=== PATIENT | female | born 1990 | race Caucasian/White ===

== ENCOUNTER 2019-05-10 17:26 | Emergency (ER) | payer OTHER ==
[2019-05-10 19:36] LABS: Urine Appearance Clear; Urine Bilirubin Negative (Negative); Urine Blood 1+ (Negative); Urine Color Yellow; Urine Glucose Negative (Negative); Urine Ketones Trace (Negative); Urine Nitrite Negative (Negative); Urine Protein Negative (Negative); Urine Specific Gravity 1.014 (1.010-1.030); Urine Urobilinogen Negative (Negative)
[2019-05-10 19:43] LABS: Urine Bacteria Absent (Absent); Urine Red Blood Cell Trace(0-2/hpf) (Absent); Urine Squamous Epithelial Cell Present (Absent); Urine White Blood Cell 2+(11-20/hpf) (Absent)
[2019-05-10 20:42] LABS: ABS Eosinophils 0.5 10^3/ul (0-0.6); ABS Lymphocytes 2.1 10^3/ul (1.0-4.8); ABS Monocytes 0.5 10^3/ul (0-0.8); ABS Neutrophils 5.7 10^3/ul (1.5-7.7); Eosinophil % 5.3 %; Hematocrit 38 % (35-47); Hemoglobin 11.9 g/dL (12.0-16.0); Mean Corpuscular HGB Conc 31 g/dL (31-36); Mean Corpuscular Hemoglobin 21 pg (27-31); Mean Corpuscular Volume 66 fL (80-97); Mean Platelet Volume 9.5 fL (7.4-10.4); Platelet Count 233 10^3/uL (150-450); Red Cell Distribution Width 15 % (10-15); White Blood Count 8.8 10^3/uL (3.5-10.8)
[2019-05-10 20:58] LABS: ALT 26 U/L (7-52); AST 20 U/L (13-39); Albumin 4.7 g/dL (3.2-5.2); Albumin/Globulin Ratio 1.7 (1-3); Alkaline Phosphatase 68 U/L (34-104); Anion Gap 8 mmol/L (2-11); BUN/Creatinine Ratio 16.9 (8-20); Blood Urea Nitrogen 15 mg/dL (6-24); C Reactive Protein < 1.00 mg/L (<8.01); CO2 Carbon Dioxide 26 mmol/L (22-32); Calcium 9.5 mg/dL (8.6-10.3); Chloride 104 mmol/L (101-111); EGFR African American 91.4 (>60); EGFR Non-African American 75.5 (>60); Globulin 2.8 g/dL (2-4); Glucose 115 mg/dL (70-100); Potassium 3.6 mmol/L (3.5-5.0); Sodium 138 mmol/L (135-145); Total Protein 7.5 g/dL (6.4-8.9)
[2019-05-10 21:04] LABS: HCG Pregnancy < 0.60 mIU/mL
--- NOTE | 2019-05-10 21:33 | ED ---
Progress - Progress Note Progress Note: Pt was called to be seen but she was not in the waiting room at 21:27. Course/Dx - Diagnoses Provider Diagnoses: RLQ abdominal pain Discharge ED - Sign-Out/Discharge Documenting (check all that apply): Patient Departure - Discharge Plan Condition: Stable Referrals: Howie Gee DO [Primary Care Provider] - - Attestation Statements Document Initiated by Scribe: Yes Documenting Scribe: Andreea Da Silva Provider For Whom Scribe is Documenting (Include Credential): Vinh Woo MD Scribe Attestation: IAndreea, scribed for Vinh Woo MD on 05/10/19 at 2206. Status of Scribe Document: Ready
--- NOTE | 2019-05-10 21:46 | ED ---
Abdominal Pain/Female - HPI Summary HPI Summary: This pt is a 29 y/o female presenting to [facility] c/o right sided abd pain worsening over the past 3 days. Pt reports she initially began to notice her pain in January 2019 along with some "gastrointestinal issues." She notes a couple of night ago her abd pain was so severe she almost came to the ED. Associated symptoms of right sided abd distension, intermittent nausea, and decreased appetite. Pt reports she woke up sweating 2 days. Denies fever or chills. Currently she rates her pain 7/10 in severity. PMHx: ovarian cyst. Denies FHx of Crohn's or UC. Her PCP is Dr. Gee. 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 Her medications include Singulair, Fluticasone, vitamins. - History of Current Complaint Chief Complaint: EDAbdPain Stated Complaint: ABDOMINAL PAIN PER PT Hx Obtained From: Patient Hx Last Menstrual Period: Mirena Onset/Duration: Lasting Days, Still Present Timing: Days Severity Currently: Moderate Pain Intensity: 7 Pain Scale Used: 0-10 Numeric Location: Other - right sided abd pain Radiates: No Aggravating Factor(s): Nothing Alleviating Factor(s): Nothing Associated Signs and Symptoms: Positive: Diaphoresis, Nausea. Negative: Fever, Cough, Chest Pain Allergies/Adverse Reactions: Allergies Allergy/AdvReac Type Severity Reaction Status Date / Time amoxicillin Allergy Unknown Verified 05/10/19 17:35 Reaction Details Penicillins Allergy Unknown Verified 05/10/19 17:35 Reaction Details prednisone Allergy Difficulty Verified 05/10/19 17:35 Breathing/Wheezing PMH/Surg Hx/FS Hx/Imm Hx Endocrine/Hematology History: Reports: Hx Anemia - IN THE PAST Denies: Hx Diabetes, Hx Thyroid Disease Cardiovascular History: Denies: Hx Hypertension, Hx Pacemaker/ICD Respiratory History: Reports: Hx Asthma - WILL BRING INHALER Denies: Hx Chronic Obstructive Pulmonary Disease (COPD), Other Respiratory Problems/Disorders GI History: Reports: Other GI Disorders - HX EATING DISORDERS NOT OTHERWISE SPECIFIED Denies: Hx Ulcer History: Denies: Hx Renal Disease Musculoskeletal History: Reports: Hx Tendonitis - ELBOWS AND ACHILLES Denies: Hx Rheumatoid Arthritis, Hx Osteoporosis Sensory History: Denies: Hx Hearing Aid - GLASSES AND CONTACTS Neurological History: Reports: Hx Migraine, Hx Seizures - MIGRAINE SEIZURE COMPLEX, TIRED, MUSCLE SPASMS, Other Neuro Impairments/Disorders - PTSD Psychiatric History: Reports: Hx Anxiety, Hx Eating Disorder, Hx Depression Denies: Hx Panic Disorder - Surgical History Surgical History: Yes Surgery Procedure, Year, and Place: TONSILLECTOMY. Tendons repaired in left arm Hx Anesthesia Reactions: No Infectious Disease History: No Infectious Disease History: Denies: Hx Clostridium Difficile, Hx Hepatitis, Hx Human Immunodeficiency Virus (HIV), Hx of Known/Suspected MRSA, Hx Shingles, Hx Tuberculosis, Hx Known/ Suspected VRE, Hx Known/Suspected VRSA, History Other Infectious Disease, Traveled Outside the [place] in Last 30 Days - Family History Known Family History: Positive: Blood Disorder - thalessemia carrier Family History: Negative FHx of crohn's or UC. - Social History Alcohol Use: None Substance Use Type: Reports: None Hx Tobacco Use: No Smoking Status (MU): Never Smoked Tobacco Have You Smoked in the Last Year: No Review of Systems Constitutional: Other - POSITIVE: decreased appetite Positive: Skin Diaphoresis. Negative: Fever, Chills Negative: Erythema Negative: Sore Throat Negative: Chest Pain Negative: Shortness Of Breath, Cough Positive: Abdominal Pain, Nausea. Negative: Vomiting Negative: dysuria, hematuria Negative: Myalgia, Edema Negative: Rash Neurological: Other - NEGATIVE: dizziness All Other Systems Reviewed And Are Negative: Yes Physical Exam - Summary Physical Exam Summary: Constitutional: Well-developed, Well-nourished, Alert. (-) Distressed Skin: Warm, Dry HENT: Normocephalic; Atraumatic Eyes: Conjunctiva normal Neck: Musculoskeletal ROM normal neck. (-) JVD, (-) Stridor, (-) Tracheal deviation Cardio: Rhythm regular, rate normal, Heart sounds normal; Intact distal pulses; The pedal pulses are 2+ and symmetric. Radial pulses are 2+ and symmetric. (-) Murmur Pulmonary/Chest wall: Effort normal. (-) Respiratory distress, (-) Wheezes, (-) Rales Abd: Soft, right lower quadrant tenderness, (-) Distension, (-) Guarding, (-) Rebound Musculoskeletal: (-) Edema Lymph: (-) Cervical adenopathy Neuro: Alert, Oriented x3 Psych: Mood and affect Normal Triage Information Reviewed: Yes Vital Signs On Initial Exam: Initial Vitals Temp Pulse Resp BP Pulse Ox 98.8 F 87 19 150/77 98 05/10/19 17:32 05/10/19 17:32 05/10/19 17:32 05/10/19 17:32 05/10/19 17:32 Vital Signs Reviewed: Yes Procedures - Sedation Patient Received Moderate/Deep Sedation with Procedure: No Diagnostics - Vital Signs Vital Signs Temp Pulse Resp BP Pulse Ox 05/10/19 19:43 98.9 F 61 18 106/56 100 05/10/19 17:32 98.8 F 87 19 150/77 98 - Laboratory Lab Results: Lab Results 05/10/19 05/10/19 05/10/19 Range/Units 19:10 20:33 20:33 WBC 8.8 (3.5-10.8) 10^3/uL RBC 5.80 H (3.70-4.87) 10^6 /uL Hgb 11.9 L (12.0-16.0) g/dL Hct 38 (35-47) % MCV 66 L (80-97) fL MCH 21 L (27-31) pg MCHC 31 (31-36) g/dL RDW 15 (10-15) % Plt Count 233 (150-450) 10^3/uL MPV 9.5 (7.4-10.4) fL Neut % (Auto) 65.0 % Lymph % (Auto) 24.0 % [place] % (Auto) 5.2 % Eos % (Auto) 5.3 % Baso % (Auto) 0.5 % Absolute Neuts (auto) 5.7 (1.5-7.7) 10^3/ul Absolute Lymphs (auto) 2.1 (1.0-4.8) 10^3/ul Absolute Monos (auto) 0.5 (0-0.8) 10^3/ul Absolute Eos (auto) 0.5 (0-0.6) 10^3/ul Absolute Basos (auto) 0.0 (0-0.2) 10^3/ul Absolute Nucleated RBC 0.0 10^3/ul Nucleated RBC % 0.0 Sodium 138 (135-145) mmol/L Potassium 3.6 (3.5-5.0) mmol/L Chloride 104 (101-111) mmol/L Carbon Dioxide 26 (22-32) mmol/L Anion Gap 8 (2-11) mmol/L BUN 15 (6-24) mg/dL Creatinine 0.89 (0.51-0.95) mg/dL Est GFR ( Amer) 91.4 (>60) Est GFR (Non-Af Amer) 75.5 (>60) BUN/Creatinine Ratio 16.9 (8-20) Glucose 115 H (70-100) mg/dL Lactic Acid (0.5-2.0) mmol/L Calcium 9.5 (8.6-10.3) mg/dL Total Bilirubin 0.30 (0.2-1.0) mg/dL AST 20 (13-39) U/L ALT 26 (7-52) U/L Alkaline Phosphatase 68 (34-104) U/L C-Reactive Protein < 1.00 (<8.01) mg/L Total Protein 7.5 (6.4-8.9) g/dL Albumin 4.7 (3.2-5.2) g/dL Globulin 2.8 (2-4) g/dL Albumin/Globulin Ratio 1.7 (1-3) Lipase 34 (11.0-82.0) U/L Beta HCG, Quant < 0.60 mIU/mL Urine Color Yellow Urine Appearance Clear Urine pH 5.0 (5-9) Ur Specific [place] 1.014 (1.010-1.030) Urine Protein Negative (Negative) Urine Ketones Trace A (Negative) Urine Blood 1+ A (Negative) Urine Nitrate Negative (Negative) Urine Bilirubin Negative (Negative) Urine Urobilinogen Negative (Negative) Ur Leukocyte Esterase Negative (Negative) Urine WBC (Auto) 2+(11-20/hpf) A (Absent) Urine RBC (Auto) Trace(0-2/hpf) (Absent) Ur Squamous Epith Cells Present A (Absent) Urine Bacteria Absent (Absent) Urine Glucose Negative (Negative) 05/10/19 Range/Units 20:33 WBC (3.5-10.8) 10^3/uL RBC (3.70-4.87) 10^6 /uL Hgb (12.0-16.0) g/dL Hct (35-47) % MCV (80-97) fL MCH (27-31) pg MCHC (31-36) g/dL RDW (10-15) % Plt Count (150-450) 10^3/uL MPV (7.4-10.4) fL Neut % (Auto) % Lymph % (Auto) % [place] % (Auto) % Eos % (Auto) % Baso % (Auto) % Absolute Neuts (auto) (1.5-7.7) 10^3/ul Absolute Lymphs (auto) (1.0-4.8) 10^3/ul Absolute Monos (auto) (0-0.8) 10^3/ul Absolute Eos (auto) (0-0.6) 10^3/ul Absolute Basos (auto) (0-0.2) 10^3/ul Absolute Nucleated RBC 10^3/ul Nucleated RBC % Sodium (135-145) mmol/L Potassium (3.5-5.0) mmol/L Chloride (101-111) mmol/L Carbon Dioxide (22-32) mmol/L Anion Gap (2-11) mmol/L BUN (6-24) mg/dL Creatinine (0.51-0.95) mg/dL Est GFR ( Amer) (>60) Est GFR (Non-Af Amer) (>60) BUN/Creatinine Ratio (8-20) Glucose (70-100) mg/dL Lactic Acid 1.0 (0.5-2.0) mmol/L Calcium (8.6-10.3) mg/dL Total Bilirubin (0.2-1.0) mg/dL AST (13-39) U/L ALT (7-52) U/L Alkaline Phosphatase (34-104) U/L C-Reactive Protein (<8.01) mg/L Total Protein (6.4-8.9) g/dL Albumin (3.2-5.2) g/dL Globulin (2-4) g/dL Albumin/Globulin Ratio (1-3) Lipase (11.0-82.0) U/L Beta HCG, Quant mIU/mL Urine Color Urine Appearance Urine pH (5-9) Ur Specific [place] (1.010-1.030) Urine Protein (Negative) Urine Ketones (Negative) Urine Blood (Negative) Urine Nitrate (Negative) Urine Bilirubin (Negative) Urine Urobilinogen (Negative) Ur Leukocyte Esterase (Negative) Urine WBC (Auto) (Absent) Urine RBC (Auto) (Absent) Ur Squamous Epith Cells (Absent) Urine Bacteria (Absent) Urine Glucose (Negative) Result Diagrams: 05/10/19 20:33 05/10/19 20:33 Lab Statement: Any lab studies that have been ordered have been reviewed, and results considered in the medical decision making process. - Ultrasound No standard instances Ultrasound Interpretation Completed By: Radiologist Summary of Ultrasound Findings: Transvaginal US IMPRESSION: No significant adnexal pathology. Trace free fluid could be from a recently ruptured small cyst. Dr. Woo has reviewed this report. Abdominal Pain Fem Course/Dx - Course Course Of Treatment: Pt is a 29 y/o female presenting to [facility] c/o right sided abd pain worsening over the past 3 days. Pt reports she initially began to notice her pain in January 2019 along with some "gastrointestinal issues." She notes a couple of night ago her abd pain was so severe she almost came to the ED. Associated symptoms of right sided abd distension, intermittent nausea, and decreased appetite. Pt reports she woke up sweating 2 days. Denies fever or chills. Currently she rates her pain 7/10 in severity. Lab results are unremarkable except for glucose of 115. UA shows trace ketones, 1+ blood, 2+ WBC , present squamous epithelial cells. Transvaginal US IMPRESSION: No significant adnexal pathology. Trace free fluid could be from a recently ruptured small cyst. Pt will be signed out to Dr. Gonzalez pending US gallbladder and CT abdomen/pelvis. - Diagnoses Provider Diagnoses: RLQ abdominal pain Discharge ED - Sign-Out/Discharge Documenting (check all that apply): Sign-Out Patient Signing out patient TO: Mau Gonzalez - CT a/p and US gallbladder. - Discharge Plan Condition: Stable Referrals: Howie Gee DO [Primary Care Provider] - - Attestation Statements Document Initiated by Scribe: Yes Documenting Scribe: Andreea Da Silva Provider For Whom Scribe is Documenting (Include Credential): Vinh Woo MD Scribe Attestation: Andreea Romano, scribed for Vinh Woo MD on 05/10/19 at 2204. Status of Scribe Document: Ready
--- NOTE | 2019-05-10 22:29 | ED ---
Progress - Progress Note Progress Note: Pt is a signout from Dr. Woo at 2200 pending US gallbladder and CT a/p. - Results/Orders Results/Orders: CT A/p shows: Small amount of free peritoneal fluid. ED physician has reviewed this report. Course/Dx - Course Course Of Treatment: Pt is a signout from Dr. Woo at 2200 pending US gallbladder and CT a/p. CT a/p shows: Small amount of free peritoneal fluid. Pt will be d/c'ed with dx of abd pain. She is agreeable with this plan. - Diagnoses Provider Diagnoses: RLQ abdominal pain Discharge ED - Sign-Out/Discharge Documenting (check all that apply): Patient Departure, Receiving Sign-Out Receiving patient FROM: Vinh Woo - Discharge Plan Condition: Stable Disposition: HOME Patient Education Materials: Ovarian Cyst (ED), Acute Abdominal Pain (ED) Referrals: Howie Gee DO [Primary Care Provider] - Additional Instructions: The most likely cause of the pain would be a ruptured ovarian cyst, a fairly common and generally benign condition that heals on its own in the vast majority of cases. The CT scan was normal, there was no sign of the more serious problem we were concerned about, acute appendicitis. So we can safely discharge you at this point. You can take OTC pain medication like tylenol or motrin to help control the symptoms. In terms of followup, if things aren't improving towards the end of the week you should see you manager security or primary care doctor. - Billing Disposition and Condition Condition: STABLE Disposition: Home - Attestation Statements Document Initiated by Sathya: Yes Documenting Scribe: Racheal Pacheco Provider For Whom Sathya is Documenting (Include Credential): Mau Gonzalez MD. Scribe Attestation: Racheal Romano, scribed for Mau Gonzalez MD. on 05/11/19 at 0637. Scribe Documentation Reviewed: Yes Provider Attestation: The documentation as recorded by the Racheal rodriguez accurately reflects the service I personally performed and the decisions made by me, Mau Gonzalez MD. Status of Scribe Document: Viewed
[2019-05-11] MEDS ORDERED: Iohexol 300* (CONTRAST) 10 ML SDV IV ONE (00:03)
[2019-05-11 04:21] VITALS: BP 102/63
== END 2019-05-11 04:10 | disposition home or self-care (01) ==
LOC: ED 17:26
DX: R10.31 Right lower quadrant pain (principal); D64.9 Anemia, unspecified; J45.909 Unspecified asthma, uncomplicated; F41.9 Anxiety disorder, unspecified; F32.9 Major depressive disorder, single episode, unspecified; Z79.899 Other long term (current) drug therapy; Z88.0 Allergy status to penicillin; Z88.8 Allergy status to other drugs, medicaments and biological substances
CPT/HCPCS: 36415; 74177; 76830; 80053; 81003; 81015; 83605; 83690; 84702; 85025; 86140; 87086; 99282; Q9967

== ENCOUNTER 2019-09-01 20:37 | Emergency (ER) | payer OTHER ==
--- NOTE | 2019-09-01 20:40 | ED ---
Psychiatric Complaint - HPI Summary HPI Summary: 29 y/o F with hx depression, anxiety, PTSD brought in by law enforcement on 45 status. Patient sees therapist at [facility]. She missed a phone call from her therapist today who became worried and called the police. Patient denies active SI and HI. Hx self harm which required surgery to repair tendons in left upper extremity. Medications reviewed. Allergies noted. - History Of Current Complaint Hx Obtained From: Patient, Other: - law enforcement Onset/Duration: Still Present Timing: Constant Aggravating Factor(s): Nothing Alleviating Factor(s): Nothing Has Suicidal: Denies: Thoughts Has Homicidal: Denies: Thoughts - Allergies/Home Medications Allergies/Adverse Reactions: Allergies Allergy/AdvReac Type Severity Reaction Status Date / Time amoxicillin Allergy Unknown Verified 05/10/19 17:35 Reaction Details Penicillins Allergy Unknown Verified 05/10/19 17:35 Reaction Details prednisone Allergy Difficulty Verified 05/10/19 17:35 Breathing/Wheezing Home Medications: Home Medications Fluticasone NASAL * [Flonase *] 1 spray BOTH NARES DAILY 08/01/14 [History Confirmed 01/14/18] Montelukast Sodium TAB* [Singulair TAB*] 10 mg PO DAILY 08/01/14 [History Confirmed 01/14/18] Albuterol HFA INHALER* 2 inh PO Q4HR PRN 11/20/14 [History Confirmed 01/14/18] Levonorgestrel (IUD) (NF) [Mirena (NF)] 1 unit INTRAUTERI DAILY 11/20/14 [ History Confirmed 01/14/18] Mometasone/Formoter 100/5 MDI* [Dulera 100/5 MDI*] 1 puff INH BID 10/16/15 [ History Confirmed 01/14/18] Albuterol/Ipratropium NEB.CURTIS* [Duoneb (Albuterol 2.5 MG/Ipratropium 0.5 MG)] 1 dose INH Q4HR 01/31/16 [History Confirmed 01/14/18] Fluticasone-Salmeterol 500-50* [Advair Diskus 500-50*] 1 INH PRN 01/31/16 [ History] PMH/Surg Hx/FS Hx/Imm Hx Endocrine/Hematology History: Reports: Hx Anemia - IN THE PAST Denies: Hx Diabetes, Hx Thyroid Disease Cardiovascular History: Denies: Hx Hypertension Respiratory History: Reports: Hx Asthma - WILL BRING INHALER Denies: Hx Chronic Obstructive Pulmonary Disease (COPD), Other Respiratory Problems/Disorders GI History: Reports: Other GI Disorders - HX EATING DISORDERS NOT OTHERWISE SPECIFIED History: Denies: Hx Renal Disease Musculoskeletal History: Reports: Hx Tendonitis - ELBOWS AND ACHILLES Sensory History: Reports: Hx Contacts or Glasses Opthamlomology History: Reports: Hx Contacts or Glasses Neurological History: Reports: Hx Migraine, Hx Seizures - MIGRAINE SEIZURE COMPLEX, TIRED, MUSCLE SPASMS Psychiatric History: Reports: Hx Anxiety, Hx Eating Disorder, Hx Depression, Hx Post Traumatic Stress Disorder - Surgical History Surgery Procedure, Year, and Place: TONSILLECTOMY. Tendons repaired in left arm Hx Anesthesia Reactions: No Infectious Disease History: Denies: Hx Clostridium Difficile, Hx Hepatitis, Hx Human Immunodeficiency Virus (HIV), Hx of Known/Suspected MRSA, Hx Shingles, Hx Tuberculosis, Hx Known/ Suspected VRE, Hx Known/Suspected VRSA, History Other Infectious Disease - Family History Known Family History: Positive: Blood Disorder - thalessemia carrier Family History: Negative FHx of crohn's or UC. - Social History Alcohol Use: None Substance Use Type: Reports: None Hx Tobacco Use: No Smoking Status (MU): Never Smoked Tobacco Have You Smoked in the Last Year: No Review of Systems Positive: Other - NEG: SI, HI All Other Systems Reviewed And Are Negative: Yes Physical Exam - Summary Physical Exam Summary: General: Well appearing, no distress HEENT: PERRL Cardiovascular: Skin is well perfused Pulmonary: No respiratory distress, no tachypnea Abdomen: Non-distended Skin: Warm, pink, dry MSK: No edema Psych: Denies SI, HI. Anxious. Neuro: A&Ox3 Triage Information Reviewed: Yes Vital Signs Reviewed: Yes Procedures - Sedation Patient Received Moderate/Deep Sedation with Procedure: No Re-Evaluation - Re-Evaluation First Eval Re-Evaluation Time: 21:09 - patient is medically cleared for MHE Course/Dx - Course Course Of Treatment: Patient presenting for mental health clearance. Patient has no active medical conditions warrantly further w/u, vital signs are stable. Patient very anxious about changing secondary to history of PTSD, discussed w psychiatry and agreed to the patient can remain in her clothes for her evaluation. Placed on observation. We'll obtain mental health evaluation. - Differential Dx/Clinical Impression Provider Diagnosis: Depression Discharge ED - Sign-Out/Discharge Documenting (check all that apply): Sign-Out Patient Signing out patient TO: Des Saleh - Discharge Plan Condition: Stable Referrals: Howie Gee DO [Primary Care Provider] - - Billing Disposition and Condition Condition: STABLE - Attestation Statements Document Initiated by Scribe: Yes Documenting Scribe: Lakshmi Cardenas Provider For Whom Sathya is Documenting (Include Credential): Vinod Hdz MD Scribe Attestation: I, Lakshmi Cardenas, scribed for Vinod Hdz MD on 09/01/19 at 2141. Scribe Documentation Reviewed: Yes Provider Attestation: The documentation as recorded by the scribeLakshmi accurately reflects the service I personally performed and the decisions made by me, Vinod Hdz MD Status of Scribe Document: Viewed
[2019-09-01 21:59] VITALS: BP 124/71
--- NOTE | 2019-09-01 22:13 | ED ---
Progress - Progress Note Progress Note: Patient signed out by Dr. Hdz to Dr. Saleh at 21:30 on 09/01/2019 pending MHE and disposition. [22:00] Patient will be discharged by Dr. Crespo. Re-Evaluation - Re-Evaluation First Eval Re-Evaluation Time: 21:09 - patient is medically cleared for MHE Course/Dx - Course Course Of Treatment: Patient was signed out to myself from Dr. Chapin. Patient was evaluated by the mental health team and they thought she was at her baseline and was safe for discharge. - Diagnoses Provider Diagnoses: Depression, PTSD (post-traumatic stress disorder) Discharge ED - Sign-Out/Discharge Documenting (check all that apply): Patient Departure - Discharge - Discharge Plan Condition: Stable Disposition: HOME Referrals: Howie Gee DO [Primary Care Provider] - - Billing Disposition and Condition Condition: STABLE Disposition: Home - Attestation Statements Document Initiated by Scribe: Yes Documenting Scribe: Liz Burroughs Provider For Whom Sathya is Documenting (Include Credential): Des Saleh MD Scribe Attestation: Liz Romano scrzoltaned for Des Saleh MD on 09/01/19 at 2319. Scribe Documentation Reviewed: Yes Provider Attestation: The documentation as recorded by the Liz rodriguez accurately reflects the service I personally performed and the decisions made by Des renee MD Status of Scribe Document: Viewed
--- OUTSIDE RECORDS SUMMARY | 2019-09-01 22:18 | XMS REPORT ---
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 Recurrent [id number] SNOMED-CT Active 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, 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 Relevant diagnostic tests/laboratory data Narrative No Information Procedures Procedure Code CodeSystem Target Date of Status Service Device Device Device Name Site Procedure Delivery Code Name UID Location SNOMED-CT () 2018-10-[address], [id number] SNOMED-CT () 2019-03-[address], [id number] SNOMED-CT () 2019-07-[address], [id number] SNOMED-CT () 2019-01-[address], [id number] SNOMED-CT () 2018-11-[address], [id number] Psychother [id number] SNOMED-CT () 2018-12-01 completed Mental y, 45 4 Health- [facility] patient [address] [place] [address], [id number] Psychother [id number] SNOMED-CT () 2018-12-15 completed Mental apy, 45 4 Health- minutes [place] with [facility] patient [address] [place] [address], [id number] Psychother [id number] SNOMED-CT () 2018-12-24 completed Mental apy, 45 4 Health- minutes [place] with [facility] patient [address] [place] [address], [id number] Psychother [id number] SNOMED-CT () 2018-12-08 completed Mental apy, 45 4 Health- minutes [place] with [facility] patient [address] [place] [address], [id number] Psychother [id number] SNOMED-CT () 2018-12-29 completed Mental apy, 45 4 Health- minutes Cirilo with [facility] patient [address] [place] [address], [id number] Psychother [id number] SNOMED-CT () 2019-01-05 completed Mental apy, 45 4 Health- minutes Cirilo with [facility] patient [address] [place] [address], [id number] Psychother [id number] SNOMED-CT () 2019-01-15 completed Mental apy, 45 4 Health- minutes Cirilo with [facility] patient [address] [place] [address], [id number] Psychother [id number] SNOMED-CT () 2019-01-18 completed Mental apy, 45 4 Health- minutes [place] with [facility] patient [address] [place] [address], [id number] Psychother [id number] SNOMED-CT () 2018-10-23 completed Mental apy, 45 4 Health- minutes [place] with [facility] patient [address] [place] [address], [id number] Psychother [id number] SNOMED-CT () 2018-10-27 completed Mental apy, 45 4 Health- minutes [place] with [facility] patient [address] [place] [address], [id number] Psychother [id number] SNOMED-CT () 2018-10-30 completed Mental apy, 45 4 Health- minutes [place] with [facility] patient [address] [place] [address], [id number] Psychother [id number] SNOMED-CT () 2018-11-06 completed Mental apy, 45 4 Health- minutes [place] with [facility] patient [address] [place] [address], [id number] Psychother [id number] SNOMED-CT () 2018-11-11 completed Mental apy, 45 4 Health- minutes [place] with [facility] patient [address] [place] [address], [id number] Psychother [id number] SNOMED-CT () 2018-10-05 completed Mental apy, 45 4 Health- minutes [place] with [facility] patient [address] [place] [address], [id number] Psychother [id number] SNOMED-CT () 2018-11-17 completed Mental apy, 45 4 Health- minutes [place] with [facility] patient [address] [place] [address], [id number] Psychother [id number] SNOMED-CT () 2019-03-29 completed Mental apy, 45 4 Health- minutes [place] with [facility] patient [address] [place] [address], [id number] Psychother [id number] SNOMED-CT () 2019-04-08 completed Mental apy, 45 4 Health- minutes [place] with [facility] patient [address] [place] [address], [id number] Psychother [id number] SNOMED-CT () 2019-04-15 completed Mental apy, 45 4 Health- minutes [place] with [facility] patient [address] [place] [address], [id number] Psychother [id number] SNOMED-CT () 2019-04-26 completed Mental apy, 45 4 Health- minutes [place] with [facility] patient [address] [place] [address], [id number] Psychother [id number] SNOMED-CT () 2019-05-06 completed Mental apy, 45 4 Health- minutes [place] with [facility] patient [address] [place] [address], [id number] Psychother [id number] SNOMED-CT () 2019-05-13 completed Mental apy, 45 4 Health- minutes [place] with [facility] patient [address] [place] [address], [id number] Psychother [id number] SNOMED-CT () 2019-05-19 completed Mental apy, 45 4 Health- minutes [place] with [facility] patient [address] [place] [address], [id number] Psychother [id number] SNOMED-CT () 2019-06-01 completed Mental apy, 45 4 Health- minutes [place] with [facility] patient [address] [place] [address], [id number] Psychother [id number] SNOMED-CT () 2019-05-25 completed Mental apy, 45 4 Health- minutes [place] with [facility] patient [address] [place] [address], [id number] Psychother [id number] SNOMED-CT () 2019-06-08 completed Mental apy, 45 4 Health- minutes [place] with [facility] patient [address] [place] [address], [id number] Psychother [id number] SNOMED-CT () 2019-06-17 completed Mental apy, 45 4 Health- minutes [place] with [facility] patient [address] [place] [address], [id number] Psychother [id number] SNOMED-CT () 2019-06-16 completed Mental apy, 45 4 Health- minutes [place] with [facility] patient [address] [place] [address], [id number] Psychother [id number] SNOMED-CT () 2019-06-22 completed Mental apy, 45 4 Health- minutes [place] with [facility] patient [address] [place] [address], [id number] Psychother [id number] SNOMED-CT () 2019-06-24 completed Mental apy, 45 4 Health- minutes [place] with [facility] patient [address] [place] [address], [id number] Psychother [id number] SNOMED-CT () 2019-06-29 completed Mental apy, 45 4 Health- minutes [place] with [facility] patient [address] [place] [address], [id number] Psychother [id number] SNOMED-CT () 2019-07-06 completed Mental apy, 45 4 Health- minutes [place] with [facility] patient [address] [place] [address], [id number] Psychother [id number] SNOMED-CT () 2019-07-13 completed Mental apy, 45 4 Health- minutes [place] with [facility] patient [address] [place] [address], [id number] Psychother [id number] SNOMED-CT () 2019-07-15 completed Mental apy, 45 4 Health- minutes [place] with [facility] patient [address] [place] [address], [id number] Psychother [id number] SNOMED-CT () 2019-02-04 completed Mental apy, 45 4 Health- minutes [place] with [facility] patient [address] [place] [address], [id number] Psychother [id number] SNOMED-CT () 2019-02-11 completed Mental apy, 45 4 Health- minutes [place] with [facility] patient [address] [place] [address], [id number] Psychother [id number] SNOMED-CT () 2019-02-08 completed Mental apy, 45 4 Health- minutes [place] with [facility] patient [address] [place] [address], [id number] Psychother [id number] SNOMED-CT () 2019-02-15 completed Mental apy, 45 4 Health- minutes [place] with [facility] patient [address] [place] [address], [id number] Psychother [id number] SNOMED-CT () 2019-02-22 completed Mental apy, 45 4 Health- minutes [place] with [facility] patient [address] [place] [address], [id number] Psychother [id number] SNOMED-CT () 2019-03-05 completed Mental apy, 45 4 Health- minutes [place] with [facility] patient [address] [place] [address], [id number] Psychother [id number] SNOMED-CT () 2019-03-08 completed Mental apy, 45 4 Health- minutes [place] with [facility] patient [address] [place] [address], [id number] Psychother [id number] SNOMED-CT () 2019-03-22 completed Mental apy, 45 4 Health- minutes [place] with [facility] patient [address] [place] [address], [id number] Psychother [id number] SNOMED-CT () 2019-03-18 completed Mental apy, 45 4 Health- minutes [place] with [facility] patient [address] [place] [address], [id number] Psychother [id number] SNOMED-CT () 2019-07-22 completed Mental apy, 45 4 Health- minutes [place] with [facility] patient [address] [place] [address], [id number] Psychother [id number] SNOMED-CT () 2019-07-27 completed Mental apy, 45 4 Health- minutes [place] with [facility] patient [address] [place] [address], [id number] Psychother [id number] SNOMED-CT () 2018-09-07 completed Mental apy, 45 4 Health- minutes [place] with [facility] patient [address] [place] [address], [id number] Psychother [id number] SNOMED-CT () 2018-09-14 completed Mental apy, 45 4 Health- minutes [place] with [facility] patient [address] [place] [address], [id number] Psychother [id number] SNOMED-CT () 2018-09-24 completed Mental apy, 45 4 Health- minutes [place] with [facility] patient [address] [place] [address], [id number] Psychother [id number] SNOMED-CT () 2018-09-28 completed Mental apy, 45 4 Health- minutes [place] with [facility] patient [address] [place] [address], [id number] Encounters/Encounter Diagnoses Encounter Encounter Diagnosis Diagnosis Diagnosis Date of Service Name Code Code Name CodeSystem Diagnosis Delivery Location [id number] Recurrent SNOMED-CT Behavioral depressive Health disorder, Clinic , , current , episode severe 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 Vital Signs No Information Social History Element Description Description Start End Code CodeSystem AdditionalInfo Date Date SexAssignedAtBirth Female 1989-0 F AdministrativeGender 13 Hospital Discharge Instructions Reason For Referral Medical Equipment FDA Assessments
--- OUTSIDE RECORDS SUMMARY | 2019-09-01 22:18 | XMS REPORT ---
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 Recurrent 94701439 SNOMED-CT Active 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, 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 Relevant diagnostic tests/laboratory data Narrative No Information Procedures Procedure Code CodeSystem Target Date of Status Service Device Device Device Name Site Procedure Delivery Code Name UID Location SNOMED-CT () 2018-10-[address], [id number] SNOMED-CT () 2019-03-[address], [id number] SNOMED-CT () 2018-11-[address], [id number] SNOMED-CT () 2019-01-[address], [id number] Psychother [id number] SNOMED-CT () 2019-03-29 completed Mental apy, 45 4 Health- minutes Andrew with [facility] patient [address] [place] [address], [id number] Psychother [id number] SNOMED-CT () 2018-09-28 completed Mental apy, 45 4 Health- minutes [place] with [facility] patient [address] [place] [address], [id number] Psychother [id number] SNOMED-CT () 2018-10-30 completed Mental apy, 45 4 Health- minutes Andrew with [facility] patient [address] [place] [address], [id number] Psychother [id number] SNOMED-CT () 2018-12-24 completed Mental apy, 45 4 Health- minutes [place] with [facility] patient [address] [place] [address], [id number] Psychother [id number] SNOMED-CT () 2019-02-15 completed Mental apy, 45 4 Health- minutes Andrew with [facility] patient [address] [place] [address], [id number] Psychother [id number] SNOMED-CT () 2019-06-29 completed Mental apy, 45 4 Health- minutes Andrew with [facility] patient [address] [place] [address], [id number] Psychother [id number] SNOMED-CT () 2018-09-24 completed Mental apy, 45 4 Health- minutes Andrew with [facility] patient [address] [place] [address], [id number] Psychother [id number] SNOMED-CT () 2019-04-26 completed Mental apy, 45 4 Health- minutes Andrew with [facility] patient [address] [place] [address], [id number] Psychother [id number] SNOMED-CT () 2019-06-22 completed Mental apy, 45 4 Health- minutes [place] with [facility] patient [address] [place] [address], [id number] Psychother [id number] SNOMED-CT () 2019-05-19 completed Mental apy, 45 4 Health- minutes [place] with [facility] patient [address] [place] [address], [id number] Psychother [id number] SNOMED-CT () 2018-11-17 completed Mental apy, 45 4 Health- minutes Cir[place] with [facility] patient [address] [place] [address], [id number] Psychother [id number] SNOMED-CT () 2018-12-15 completed Mental apy, 45 4 Health- minutes Cir[place] with [facility] patient [address] [place] [address], [id number] Psychother [id number] SNOMED-CT () 2019-03-18 completed Mental apy, 45 4 Health- minutes Andrew with [facility] patient [address] [place] [address], [id number] Psychother [id number] SNOMED-CT () 2019-06-08 completed Mental apy, 45 4 Health- minutes [place] with [facility] patient [address] [place] [address], [id number] Psychother [id number] SNOMED-CT () 2019-07-06 completed Mental apy, 45 4 Health- minutes Andrew with [facility] patient [address] [place] [address], [id number] Psychother [id number] SNOMED-CT () 2018-12-08 completed Mental apy, 45 4 Health- minutes Andrew with [facility] patient [address] [place] [address], [id number] Psychother [id number] SNOMED-CT () 2019-02-04 completed Mental apy, 45 4 Health- minutes Andrew with [facility] patient [address] [place] [address], [id number] Psychother [id number] SNOMED-CT () 2019-06-16 completed Mental apy, 45 4 Health- minutes [place] with [facility] patient [address] [place] [address], [id number] Psychother [id number] SNOMED-CT () 2019-07-13 completed Mental apy, 45 4 Health- minutes Andrew with [facility] patient [address] [place] [address], [id number] Psychother [id number] SNOMED-CT () 2019-03-08 completed Mental apy, 45 4 Health- minutes [place] with [facility] patient [address] [place] [address], [id number] Psychother [id number] SNOMED-CT () 2019-06-24 completed Mental apy, 45 4 Health- minutes Andrew with [facility] patient [address] [place] [address], [id number] Psychother [id number] SNOMED-CT () 2018-12-29 completed Mental apy, 45 4 Health- minutes Andrew with [facility] patient [address] [place] [address], [id number] Psychother [id number] SNOMED-CT () 2019-02-22 completed Mental apy, 45 4 Health- minutes Andrew with [facility] patient [address] [place] [address], [id number] Psychother [id number] SNOMED-CT () 2019-01-15 completed Mental apy, 45 4 Health- minutes Andrew with [facility] patient [address] [place] [address], [id number] Psychother [id number] SNOMED-CT () 2018-11-06 completed Mental apy, 45 4 Health- minutes Andrew with [facility] patient [address] [place] [address], [id number] Psychother [id number] SNOMED-CT () 2019-01-18 completed Mental apy, 45 4 Health- minutes Andrew with [facility] patient [address] [place] [address], [id number] Psychother [id number] SNOMED-CT () 2018-09-14 completed Mental apy, 45 4 Health- minutes [place] with [facility] patient [address] [place] [address], [id number] Psychother [id number] SNOMED-CT () 2019-01-05 completed Mental apy, 45 4 Health- minutes [place] with [facility] patient [address] [place] [address], [id number] Psychother [id number] SNOMED-CT () 2019-06-01 completed Mental apy, 45 4 Health- minutes [place] with [facility] patient [address] [place] [address], [id number] Psychother [id number] SNOMED-CT () 2018-12-01 completed Mental apy, 45 4 Health- minutes [place] with [facility] patient [address] [place] [address], [id number] Psychother [id number] SNOMED-CT () 2019-02-11 completed Mental apy, 45 4 Health- minutes [place] with [facility] patient [address] [place] [address], [id number] Psychother [id number] SNOMED-CT () 2019-02-08 completed Mental apy, 45 4 Health- minutes Andrew with [facility] patient [address] [place] [address], [id number] Psychother [id number] SNOMED-CT () 2018-11-11 completed Mental apy, 45 4 Health- minutes Andrew with [facility] patient [address] [place] [address], [id number] Psychother [id number] SNOMED-CT () 2018-10-05 completed Mental apy, 45 4 Health- minutes Andrew with [facility] patient [address] [place] [address], [id number] Psychother [id number] SNOMED-CT () 2019-05-25 completed Mental apy, 45 4 Health- minutes [place] with [facility] patient [address] [place] [address], [id number] Psychother [id number] SNOMED-CT () 2018-10-27 completed Mental apy, 45 4 Health- minutes Andrew with [facility] patient [address] [place] [address], [id number] Psychother [id number] SNOMED-CT () 2019-04-15 completed Mental apy, 45 4 Health- minutes Andrew with [facility] patient [address] [place] [address], [id number] Psychother [id number] SNOMED-CT () 2019-03-22 completed Mental apy, 45 4 Health- minutes Cir[place] with [facility] patient [address] [place] [address], [id number] Psychother [id number] SNOMED-CT () 2019-05-06 completed Mental apy, 45 4 Health- minutes Andrew with [facility] patient [address] [place] [address], [id number] Psychother [id number] SNOMED-CT () 2018-09-07 completed Mental apy, 45 4 Health- minutes Cir[place] with [facility] patient [address] [place] [address], [id number] Psychother [id number] SNOMED-CT () 2019-05-13 completed Mental apy, 45 4 Health- minutes Cirilo with [facility] patient [address] [place] [address], [id number] Psychother [id number] SNOMED-CT () 2019-04-08 completed Mental apy, 45 4 Health- minutes Cirilo with [facility] patient [address] [place] [address], [id number] Psychother [id number] SNOMED-CT () 2019-06-17 completed Mental apy, 45 4 Health- minutes Cirilo with [facility] patient [address] [place] [address], [id number] Psychother [id number] SNOMED-CT () 2019-03-05 completed Mental apy, 45 4 Health- minutes Cir[place] with [facility] patient [address] [place] [address], [id number] Psychother [id number] SNOMED-CT () 2018-10-23 completed Mental apy, 45 4 Health- minutes Cirilo with [facility] patient [address] [place] [address], [id number] Encounters/Encounter Diagnoses Encounter Encounter Diagnosis Diagnosis Diagnosis Date of Service Name Code Code Name CodeSystem Diagnosis Delivery Location [id number] Recurrent SNOMED-CT Behavioral depressive Health disorder, Clinic , , current , episode severe 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 Vital Signs No Information Social History Element Description Description Start End Code CodeSystem AdditionalInfo Date Date SexAssignedAtBirth Female F AdministrativeGender 02-12 Hospital Discharge Instructions Reason For Referral Medical Equipment FDA Assessments
--- OUTSIDE RECORDS SUMMARY | 2019-09-01 22:18 | XMS REPORT ---
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 Recurrent [id number] SNOMED-CT Active 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, 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 Relevant diagnostic tests/laboratory data Narrative No Information Procedures Procedure Code CodeSystem Target Date of Status Service Device Device Device Name Site Procedure Delivery Code Name UID Location Psychother [id number] SNOMED-CT () 2019-06-22 completed Mental apy, 45 4 Health- minutes Alexander with [facility] patient [address] [place] [address], [id number] Psychother [id number] SNOMED-CT () 2018-12-24 completed Mental apy, 45 4 Health- minutes Alexander with [facility] patient [address] [place] [address], [id number] Psychother [id number] SNOMED-CT () 2019-03-29 completed Mental apy, 45 4 Health- minutes Cirilo with [facility] patient [address] [place] [address], [id number] Psychother [id number] SNOMED-CT () 2019-06-29 completed Mental apy, 45 4 Health- minutes Alexander with [facility] patient [address] [place] [address], [id number] Psychother [id number] SNOMED-CT () 2019-07-22 completed Mental apy, 45 4 Health- minutes Cirilo with [facility] patient [address] [place] [address], [id number] Psychother [id number] SNOMED-CT () 2018-09-24 completed Mental apy, 45 4 Health- minutes Cirilo with [facility] patient [address] [place] [address], [id number] Psychother [phone] SNOMED-CT () 2018-10-30 completed Mental apy, 45 4 Health- minutes Cirilo with [facility] patient [address] [place] [address], [id number] Psychother [id number] SNOMED-CT () 2018-09-28 completed Mental apy, 45 4 Health- minutes Cirilo with [facility] patient [address] [place] [address], [id number] Psychother [id number] SNOMED-CT () 2019-02-15 completed Mental apy, 45 4 Health- minutes Cirilo with [facility] patient [address] [place] [address], [id number] Psychother [id number] SNOMED-CT () 2019-04-26 completed Mental apy, 45 4 Health- minutes Alexander with [facility] patient [address] [place] [address], [id number] Psychother [id number] SNOMED-CT () 2018-10-27 completed Mental apy, 45 4 Health- minutes Cirilo with [facility] patient [address] [place] [address], [id number] Psychother [id number] SNOMED-CT () 2018-10-05 completed Mental apy, 45 4 Health- minutes Alexander with [facility] patient [address] [place] [address], [id number] Psychother [id number] SNOMED-CT () 2019-07-15 completed Mental apy, 45 4 Health- minutes Alexander with [facility] patient [address] [place] [address], [id number] Psychother [id number] SNOMED-CT () 2019-05-25 completed Mental apy, 45 4 Health- minutes Cirilo with [facility] patient [address] [place] [address], [id number] Psychother [id number] SNOMED-CT () 2018-11-11 completed Mental apy, 45 4 Health- minutes Cirilo with [facility] patient [address] [place] [address], [id number] SNOMED-CT () 2018-11-26 completed Mental Health- Cirilo [address], [id number] [phone] Psychother [id number] SNOMED-CT () 2019-02-11 completed Mental apy, 45 4 Health- minutes Cirilo with [facility] patient [address] [place] [address], [id number] Psychother [id number] SNOMED-CT () 2019-02-08 completed Mental apy, 45 4 Health- minutes Cirilo with [facility] patient [address] [place] [address], [id number] Psychother [id number] SNOMED-CT () 2019-08-04 completed Mental apy, 45 4 Health- minutes Alexander with [facility] patient [address] [place] [address], [id number] Psychother [id number] SNOMED-CT () 2018-12-29 completed Mental apy, 45 4 Health- minutes Cirilo with [facility] patient [address] [place] [address], [id number] Psychother [id number] SNOMED-CT () 2019-03-08 completed Mental apy, 45 4 Health- minutes Cirilo with [facility] patient [address] [place] [address], [id number] Psychother [id number] SNOMED-CT () 2019-06-24 completed Mental apy, 45 4 Health- minutes Cirilo with [facility] patient [address] [place] [address], [id number] Psychother [id number] SNOMED-CT () 2019-02-22 completed Mental apy, 45 4 Health- minutes Alexander with [facility] patient [address] [place] [address], [id number] Psychother [id number] SNOMED-CT () 2019-07-27 completed Mental apy, 45 4 Health- minutes Icrilo with [facility] patient [address] [place] [address], [id number] Psychother [id number] SNOMED-CT () 2019-01-15 completed Mental apy, 45 4 Health- minutes Cirilo with [facility] patient [address] [place] [address], [id number] Psychother [id number] SNOMED-CT () 2019-03-05 completed Mental apy, 45 4 Health- minutes Cirilo with [facility] patient [address] [place] [address], [id number] SNOMED-CT () 2019-07-22 completed Mental Health- Alexander [address], [id number] Psychother [id number] SNOMED-CT () 2018-10-23 completed Mental apy, 45 4 Health- minutes Alexander with [facility] patient [address] [place] [address], [id number] Psychother [id number] SNOMED-CT () 2018-09-14 completed Mental apy, 45 4 Health- minutes Alexander with [facility] patient [address] [place] [address], [id number] Psychother [id number] SNOMED-CT () 2018-12-01 completed Mental apy, 45 4 Health- minutes Cirilo with [facility] patient [address] [place] [address], [id number] Psychother [id number] SNOMED-CT () 2019-01-18 completed Mental apy, 45 4 Health- minutes Alexander with [facility] patient [address] [place] [address], [id number] Psychother [id number] SNOMED-CT () 2019-06-01 completed Mental apy, 45 4 Health- minutes Alexander with [facility] patient [address] [place] [address], [id number] Psychother [id number] SNOMED-CT () 2018-11-06 completed Mental apy, 45 4 Health- minutes Alexander with [facility] patient [address] [place] [address], [id number] Psychother [id number] SNOMED-CT () 2019-01-05 completed Mental apy, 45 4 Health- minutes Cirilo with [facility] patient [address] [place] [address], [id number] Psychother [id number] SNOMED-CT () 2018-09-07 completed Mental apy, 45 4 Health- minutes Cirilo with [facility] patient [address] [place] [address], [id number] SNOMED-CT () 2019-01-28 completed Mental Health- Cirilo [address], [id number] [id number] SNOMED-CT () 2019-03-26 completed Mental Health- Alexander [address], [id number] Psychother [id number] SNOMED-CT () 2019-04-15 completed Mental apy, 45 4 Health- minutes Alexander with [facility] patient [address] [place] [address], [id number] Psychother [id number] SNOMED-CT () 2019-05-06 completed Mental apy, 45 4 Health- minutes Cirilo with [facility] patient [address] [place] [address], [id number] Psychother [id number] SNOMED-CT () 2019-05-13 completed Mental apy, 45 4 Health- minutes Cirilo with [address], [id number] Psychother [id number] SNOMED-CT () 2019-03-22 completed Mental apy, 45 4 Health- minutes Cirilo with [facility] patient [address] [place] [address], [id number] Psychother [id number] SNOMED-CT () 2019-04-08 completed Mental apy, 45 4 Health- minutes Alexander with [facility] patient [address] [place] [address], [id number] Psychother [id number] SNOMED-CT () 2019-06-17 completed Mental apy, 45 4 Health- minutes Cirilo with [facility] patient [address] [place] [address], [id number] SNOMED-CT () 2018-10-12 completed Mental Health- Cirilo [address], [id number] Psychother [id number] SNOMED-CT () 2018-11-17 completed Mental apy, 45 4 Health- minutes Cirilo with [facility] patient [address] [place] [address], [id number] Psychother [id number] SNOMED-CT () 2019-02-04 completed Mental apy, 45 4 Health- minutes Alexander with [facility] patient [address] [place] [address], [id number] Psychother [id number] SNOMED-CT () 2019-05-19 completed Mental apy, 45 4 Health- minutes Cirilo with [facility] patient [address] [place] [address], [id number] Psychother [id number] SNOMED-CT () 2019-06-08 completed Mental apy, 45 4 Health- minutes Cirilo with [facility] patient [address] [place] [address], [id number] Psychother [id number] SNOMED-CT () 2019-07-06 completed Mental apy, 45 4 Health- minutes Alexander with [facility] patient [address] [place] [address], [id number] Psychother [id number] SNOMED-CT () 2018-12-15 completed Mental apy, 45 4 Health- minutes Alexander with [facility] patient [address] [place] [address], [id number] Psychother [id number] SNOMED-CT () 2018-12-08 completed Mental apy, 45 4 Health- minutes Cirilo with [facility] patient [address] [place] [address], [id number] Psychother [id number] SNOMED-CT () 2019-03-18 completed Mental apy, 45 4 Health- minutes Alexander with [facility] patient [address] [place] [address], [id number] Psychother [id number] SNOMED-CT () 2019-06-16 completed Mental apy, 45 4 Health- minutes Cirilo with [facility] patient [address] [place] [address], [id number] Psychother [id number] SNOMED-CT () 2019-07-13 completed Mental apy, 45 4 Health- minutes Cirilo with [facility] patient [address] [place] [address], [id number] Encounters/Encounter Diagnoses Encounter Encounter Diagnosis Diagnosis Diagnosis Date of Service Name Code Code Name CodeSystem Diagnosis Delivery Location [id number] Recurrent SNOMED-CT Behavioral depressive Health disorder, Clinic , , current , episode severe 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 Vital Signs No Information Social History Element Description Description Start End Code CodeSystem AdditionalInfo Date Date SexAssignedAtBirth Female F AdministrativeGender 02-12 Hospital Discharge Instructions Reason For Referral Medical Equipment FDA Assessments
--- OUTSIDE RECORDS SUMMARY | 2019-09-01 22:18 | XMS REPORT ---
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 Recurrent [id number] SNOMED-CT Active 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, 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 Relevant diagnostic tests/laboratory data Narrative No Information Procedures Procedure Code CodeSystem Target Date of Status Service Device Device Device Name Site Procedure Delivery Code Name UID Location SNOMED-CT () 2019-03-[address], [id number] SNOMED-CT () 2018-10-[address], [id number] SNOMED-CT () 2019-01-[address], [id number] SNOMED-CT () 2018-11-[address], [id number] Psychother [phone] SNOMED-CT () 2019-02-22 completed Mental apy, 45 4 Health- minutes [place] with [facility] patient [address] [place] [address], [id number] Psychother [id number] SNOMED-CT () 2019-01-15 completed Mental apy, 45 4 Health- minutes Cirilo with [facility] patient [address] [place] [address], [id number] Psychother [id number] SNOMED-CT () 2018-12-29 completed Mental apy, 45 4 Health- minutes [place] with [facility] patient [address] [place] [address], [id number] Psychother [id number] SNOMED-CT () 2019-03-08 completed Mental apy, 45 4 Health- minutes Cirilo with [facility] patient [address] [place] [address], [id number] Psychother [id number] SNOMED-CT () 2019-06-24 completed Mental apy, 45 4 Health- minutes [place] with [facility] patient [address] [place] [address], [id number] Psychother [id number] SNOMED-CT () 2019-05-06 completed Mental apy, 45 4 Health- minutes [place] with [facility] patient [address] [place] [address], [id number] Psychother [id number] SNOMED-CT () 2019-05-13 completed Mental apy, 45 4 Health- minutes [place] with [facility] patient [address] [place] [address], [id number] Psychother [id number] SNOMED-CT () 2019-03-22 completed Mental apy, 45 4 Health- minutes [place] with [facility] patient [address] [place] [address], [id number] Psychother [id number] SNOMED-CT () 2019-04-08 completed Mental apy, 45 4 Health- minutes Cirilo with [facility] patient [address] [place] [address], [id number] Psychother [id number] SNOMED-CT () 2019-06-17 completed Mental apy, 45 4 Health- minutes Cirilo with [facility] patient [address] [place] [address], [id number] Psychother [id number] SNOMED-CT () 2018-09-07 completed Mental apy, 45 4 Health- minutes Cirilo with [facility] patient [address] [place] [address], [id number] Psychother [id number] SNOMED-CT () 2019-04-15 completed Mental apy, 45 4 Health- minutes Cirilo with [facility] patient [address] [place] [address], [id number] Psychother [id number] SNOMED-CT () 2018-12-24 completed Mental apy, 45 4 Health- minutes [place] with [facility] patient [address] [place] [address], [id number] Psychother [id number] SNOMED-CT () 2019-06-29 completed Mental apy, 45 4 Health- minutes Cirilo with [facility] patient [address] [place] [address], [id number] Psychother [id number] SNOMED-CT () 2019-04-26 completed Mental apy, 45 4 Health- minutes [place] with [facility] patient [address] [place] [address], [id number] Psychother [id number] SNOMED-CT () 2019-02-15 completed Mental apy, 45 4 Health- minutes [place] with [facility] patient [address] [place] [address], [id number] Psychother [id number] SNOMED-CT () 2019-06-22 completed Mental apy, 45 4 Health- minutes [place] with [facility] patient [address] [place] [address], [id number] Psychother [id number] SNOMED-CT () 2018-09-28 completed Mental apy, 45 4 Health- minutes Cirilo with [facility] patient [address] [place] [address], [id number] Psychother [id number] SNOMED-CT () 2018-09-24 completed Mental apy, 45 4 Health- minutes [place] with [facility] patient [address] [place] [address], [id number] Psychother [id number] SNOMED-CT () 2018-10-30 completed Mental apy, 45 4 Health- minutes Cirilo with [facility] patient [address] [place] [address], [id number] Psychother [id number] SNOMED-CT () 2019-03-29 completed Mental apy, 45 4 Health- minutes [place] with [facility] patient [address] [place] [address], [id number] Psychother [id number] SNOMED-CT () 2018-11-06 completed Mental apy, 45 4 Health- minutes [place] with [facility] patient [address] [place] [address], [id number] Psychother [id number] SNOMED-CT () 2019-06-01 completed Mental apy, 45 4 Health- minutes [place] with [facility] patient [address] [place] [address], [id number] Psychother [id number] SNOMED-CT () 2018-12-01 completed Mental apy, 45 4 Health- minutes [place] with [facility] patient [address] [place] [address], [id number] Psychother [id number] SNOMED-CT () 2019-01-05 completed Mental apy, 45 4 Health- minutes [place] with [facility] patient [address] [place] [address], [id number] Psychother [id number] SNOMED-CT () 2019-01-18 completed Mental apy, 45 4 Health- minutes [place] with [facility] patient [address] [place] [address], [id number] Psychother [id number] SNOMED-CT () 2018-09-14 completed Mental apy, 45 4 Health- minutes Cirilo with [facility] patient [address] [place] [address], [id number] Psychother [id number] SNOMED-CT () 2019-03-05 completed Mental apy, 45 4 Health- minutes Cirilo with [facility] patient [address] [place] [address], [id number] Psychother [id number] SNOMED-CT () 2018-10-23 completed Mental apy, 45 4 Health- minutes Cirilo with [facility] patient [address] [place] [address], [id number] Psychother [id number] SNOMED-CT () 2018-12-08 completed Mental apy, 45 4 Health- minutes Cirilo with [facility] patient [address] [place] [address], [id number] Psychother [id number] SNOMED-CT () 2019-06-08 completed Mental apy, 45 4 Health- minutes Cirilo with [facility] patient [address] [place] [address], [id number] Psychother [id number] SNOMED-CT () 2019-07-06 completed Mental apy, 45 4 Health- minutes [place] with [facility] patient [address] [place] [address], [id number] Psychother [id number] SNOMED-CT () 2019-02-04 completed Mental apy, 45 4 Health- minutes [place] with [facility] patient [address] [place] [address], [id number] Psychother [id number] SNOMED-CT () 2019-03-18 completed Mental apy, 45 4 Health- minutes [place] with [facility] patient [address] [place] [address], [id number] Psychother [id number] SNOMED-CT () 2019-06-16 completed Mental apy, 45 4 Health- minutes Cirilo with [facility] patient [address] [place] [address], [id number] Psychother [id number] SNOMED-CT () 2019-07-13 completed Mental apy, 45 4 Health- minutes [place] with [facility] patient [address] [place] [address], [id number] Psychother [id number] SNOMED-CT () 2018-11-17 completed Mental apy, 45 4 Health- minutes [place] with [facility] patient [address] [place] [address], [id number] Psychother [id number] SNOMED-CT () 2019-05-19 completed Mental apy, 45 4 Health- minutes Cirilo with [facility] patient [address] [place] [address], [id number] Psychother [id number] SNOMED-CT () 2018-12-15 completed Mental apy, 45 4 Health- minutes [place] with [facility] patient [address] [place] [address], [id number] Psychother [id number] SNOMED-CT () 2019-05-25 completed Mental apy, 45 4 Health- minutes Cirilo with [facility] patient [address] [place] [address], [id number] Psychother [id number] SNOMED-CT () 2018-10-27 completed Mental apy, 45 4 Health- minutes Cirilo with [facility] patient [address] [place] [address], [id number] Psychother [id number] SNOMED-CT () 2018-11-11 completed Mental apy, 45 4 Health- minutes Cirilo with [facility] patient [address] [place] [address], [id number] Psychother [id number] SNOMED-CT () 2019-02-11 completed Mental apy, 45 4 Health- minutes Cirilo with [facility] patient [address] [place] [address], [id number] Psychother [id number] SNOMED-CT () 2019-02-08 completed Mental apy, 45 4 Health- minutes Cirilo with [facility] patient [address] [place] [address], [id number] Psychother [id number] SNOMED-CT () 2018-10-05 completed Mental apy, 45 4 Health- minutes Cirilo with [facility] patient [address] [place] [address], [id number] Psychother [id number] SNOMED-CT () 2019-07-15 completed Mental apy, 45 4 Health- minutes Cirilo with [facility] patient [address] [place] [address], [id number] Encounters/Encounter Diagnoses Encounter Encounter Diagnosis Diagnosis Diagnosis Date of Service Name Code Code Name CodeSystem Diagnosis Delivery Location [id number] Recurrent SNOMED-CT Behavioral depressive Health disorder, Clinic , , current , episode severe 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 Vital Signs No Information Social History Element Description Description Start End Code CodeSystem AdditionalInfo Date Date SexAssignedAtBirth Female F AdministrativeGender 02-12 Hospital Discharge Instructions Reason For Referral Medical Equipment FDA Assessments
--- OUTSIDE RECORDS SUMMARY | 2019-09-01 22:18 | XMS REPORT | Continuity of Care Document ---
:1990 External Reference #:[id number] Author Name Howie Gee D.O. 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 Problems Active Problems Provider Date Eating disorder Simi Melo PA Onset: 06/24/2018 Fibromyalgia Simi Melo PA Onset: 06/24/2018 Mild intermittent asthma Simi Melo PA Onset: 06/24/2018 Moderate recurrent major depression Simi Melo PA Onset: 06/24/2018 Chronic pain Simi Melo PA Onset: 06/24/2018 Posttraumatic stress disorder Simi Melo PA Onset: 06/24/2018 Social History Type Date Description Comments Sex Unknown Tobacco Use Start: Unknown Denies Cigarette Use ETOH Use Rarely consumes alcohol Recreational Drug Use Denies Drug Use Tobacco Use Start: Unknown Non Smoker Smoking Status Reviewed: 06/22/19 Non Smoker Exercise Type/Frequency Exercises regularly Exercise Type/Frequency Exercises sporadically Guns in Home No Smoke Alarms Yes smoke alarm Allergies, Adverse Reactions, Alerts Active Allergies Reaction Severity Comments Date Amoxicillin 06/10/2017 Prednisone 07/31/2017 Serotonin Severe Serotonin Syndrome 09/12/2017 Medications Active Medications SIG Qnty Indications Ordering Date Provider Montelukast Sodium Take One Tablet 30tabs Cliff Ballesteros, 10/16/2018 By Mouth Once M.D. 10mg Tablets Daily For Allergies And Resulting Asthma Magnesium daily Unknown 08/05/2018 Vitamin D daily Unknown 08/05/2018 Vitamin B 12 daily Unknown 08/05/2018 Sterile Saline 1 vial per 30vials Cliff Ballesteros, 06/24/2018 nebulizer 3x/day M.D. Solution as needed Flonase Allergy 1-2 sprays per 142.2ml Howie Gee, 11/13/2017 Relief nostril daily D.O. 50mcg/Act Suspension Combivent Respimat 1 puffs every 4 1inh Cliff Ballesteros, 06/10/2017 hours as needed M.D. 20-100mcg/Act for asthma Aerosol symptoms/cough/so b Ventolin HFA 1-2 puff q4 hours 1Inhaler Cliff Ballesteros, 06/10/2017 for breath M.D. 108(90Base) mcg/Act Aerosol IUD Unknown History Medications Mirtazapine 1 by mouth every 90tabs Howie Gee, 05/20/2019 - 7.5mg night for sleep D.O. 06/21/2019 Tablets and anxiety Diflucan 1 tablet, 1 time 1tabs Cliff Ballesteros, 04/18/2019 - 150mg Tablets M.D. 04/21/2019 Alprazolam take 1 tablet by 1tabs Howie Gee, 03/18/2019 - 0.5mg mouth once for D.O. 04/08/2019 Tablets acute anxiety Immunizations CPT Code Status Date Vaccine Lot # [id number] Refused 04/12/2019 Influenza,Unspecified Vital Signs Date Vital Result Comment 07/28/2019 1:14pm BP Systolic 90 mmHg BP Diastolic 60 mmHg 06/22/2019 11:49am BP Systolic 98 mmHg BP Diastolic 62 mmHg Results Test Acquired Date Facility Test Result H/L Range Note Urinalysis Profile 05/10/2019 [facility] Urine Color Yellow [phone] Urine Appearance Clear Urine Specific [place] 1.014 Normal 1.010-1.030 Urine pH 5.0 Normal 5-9 Urine Urobilinogen Negative Negative Urine Ketones Trace Abnormal Negative Urine Protein Negative Negative Urine Leukocytes Negative Negative Urine Blood 1+ Abnormal Negative Urine Nitrite Negative Negative Urine Bilirubin Negative Negative Urine Glucose Negative Negative Urine White Blood Cell 2+(11-20/hpf) Abnormal Absent Urine Red Blood Cell Trace(0-2/hpf) Absent Urine Bacteria Absent Absent Urine Squamous Epithelial Cell Present Abnormal Absent CBC Auto Diff 05/10/2019 [facility] White Blood 8.8 10^3/uL Normal 3.5-10.8 [phone] Count Red Blood Count 5.80 10^6/uL High 3.70-4.87 Hemoglobin 11.9 g/dL Low 12.0-16.0 Hematocrit 38 % Normal 35-47 Mean Corpuscular Volume 66 fL Low 80-97 1 Mean Corpuscular Hemoglobin 21 pg Low 27-31 Mean Corpuscular HGB Conc 31 g/dL Normal 31-36 Red Cell Distribution Width 15 % Normal 10-15 Platelet Count 233 10^3/uL Normal 150-450 Mean Platelet Volume 9.5 fL Normal 7.4-10.4 Abs Neutrophils 5.7 10^3/uL Normal 1.5-7.7 Abs Lymphocytes 2.1 10^3/uL Normal 1.0-4.8 Abs Monocytes 0.5 10^3/uL Normal 0-0.8 Abs Eosinophils 0.5 10^3/uL Normal 0-0.6 Abs Basophils 0.0 10^3/uL Normal 0-0.2 Abs Nucleated RBC 0.0 10^3/uL Granulocyte % 65.0 % Lymphocyte % 24.0 % Monocyte % 5.2 % Eosinophil % 5.3 % Basophil % 0.5 % Nucleated Red Blood Cells % 0.0 Laboratory test 05/10/2019 [facility] Lactic Acid 1.0 mmol/L Normal 0.5-2.0 2 finding [phone] Comp Metabolic 05/10/2019 [facility] Sodium 138 mmol/L Normal 135- 145 Panel [phone] Potassium 3.6 mmol/L Normal 3.5-5.0 Chloride 104 mmol/L Normal 101-111 Co2 Carbon Dioxide 26 mmol/L Normal 22-32 Anion Gap 8 mmol/L Normal 2-11 Glucose 115 mg/dL High 70-100 Blood Urea Nitrogen 15 mg/dL Normal 6-24 Creatinine 0.89 mg/dL Normal 0.51-0.95 BUN/Creatinine Ratio 16.9 Normal 8-20 Calcium 9.5 mg/dL Normal 8.6-10.3 Total Protein 7.5 g/dL Normal 6.4-8.9 Albumin 4.7 g/dL Normal 3.2-5.2 Globulin 2.8 g/dL Normal 2-4 Albumin/Globulin Ratio 1.7 Normal 1-3 Total Bilirubin 0.30 mg/dL Normal 0.2-1.0 Alkaline Phosphatase 68 U/L Normal 34-104 Alt 26 U/L Normal 7-52 Ast 20 U/L Normal 13-39 Egfr Non- 75.5 >60 Egfr 91.4 >60 3 Laboratory test finding 05/10/2019 [facility] Lipase 34 U/L Normal 11.0-82.0 [phone] C Reactive Protein < 1.00 mg/L Normal <8.01 HCG < 0.60 mIU/mL 4 Urine Culture And 05/10/2019 [facility] Urine Culture SEE RESULT BELOW 5 Sensitivities [phone] Ua Inhouse 04/12/2019 In House Ua Glucose - 6 Ua Bilirubin - Ua Ketones - Ua Specific [place] 1.005 Ua Blood - Ua PH 6.0 Ua Protein - Ua Urobilinogen - Ua Nitrite - Ua Leukocytes - Laboratory test finding 04/12/2019 [facility] Cytology SEE RESULT BELOW 7 [phone] 1 Consistent with Previous Results Reported on 12/07/18 2 [facility] Severe Sepsis and Septic Shock Management Bundle Measure requires all lactic acids initially measuring >2.0 mmol/L be repeated. 3 Because ethnic data is not always readily available, this report includes an eGFR for both -Americans and non- Americans. The National Kidney Disease Education Program (NKDEP) does not endorse the use of the MDRD equation for patients that are not between the ages of 18 and 70, are , have extremes of body size, muscle mass, or nutritional status, or are non- or non-. According to the National Kidney Foundation, irrespective of diagnosis, the stage of the disease is based on the level of kidney function: Stage Description GFR(mL/min/1.73 m(2)) 1 Kidney damage with normal or decreased GFR 90 2 Kidney damage with mild decrease in GFR 60-89 3 Moderate decrease in GFR 30-59 4 Severe decrease in GFR 15-29 5 Kidney failure <15 (or dialysis) 4 <5.0 Negative 5.0 - 25.0 Indeterminate (Repeat testing recommended after 72 hours) >25.0 Positive Perimenopausal women can display HCG levels of up to 20 mIU/mL 5 SEE RESULT BELOW Name: YOLANDA DARNELL : [address]: Mau Gonzalez MD Acct: [id number] Unit: [id number] AGE: 29 Location: ED Re05/10/19 SEX: F Status: DEP ER SPEC: [id number] ALENA: 05/10/[address] [facility] [address]: Jacqueline LLANES REQ: [id number] RECD: 05/10/19 STATUS: GRIFFIN SABA DR: Howie Gee DO _ SOURCE: URINE [facility]: ORDERED: Urine Culture Procedure Result Reported Site Urine Culture Final 05/12/19- 933 ML No Growth (<1,000 CFU/mL) * ML - Main Lab . END OF REPORT DEPARTMENT OF PATHOLOGY, [address] [place] [address] Gabino García M.D. 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 SPECIMEN(S) RECEIVED A. Ectocervical/Endocervical CYTOLOGY ADEQUACY Specimen Adequacy: Satisfactory of evaluation Transformation zone component not identified CONTINUED ON NEXT PAGE DEPARTMENT OF PATHOLOGY, [address] [place] [address] Gabino García M.D. Director [facility] # [id number] CYTOLOGY PATIENT INFORMATION Patient Information: HPV: Thin Layer Pap Test w/reflex to high risk HPV RNA testing when ASCUS Actual Specimen Date: 04/12/19 ?: N Post Menopausal?: N Hysterectomy?: N Signed by and Reported on: Jacqueline Newby MD 04/15/19 5304 This Pap test was evaluated with the assistance of the [employer] Test Imaging System. Due to cytologic findings at the lamp shades supervisor microscope, comprehensive manual rescreening by a Hr Administrative Assistant may be required. The Pap Smear is a screening test designed to aid in the detection of premalignant and malignant conditions of the uterine cervix. It is not a diagnostic procedure and should not be used as the sole means of detecting cervical cancer. Both false- positive and false- negative reports do occur. Depending on your risk status, a Pap smear should be obtained and evaluated every 1-3 years. END OF REPORT DEPARTMENT OF PATHOLOGY, [facility] [address] [place], [place] [address] Gabino García M.D. Director [facility] # [id number] Procedures Date Code Description Status 07/28/2019 73968 Omt 7-8 Body Regions Completed 06/22/2019 82591 Brief Emotional/Behav Assessment W/ Scoring Doc Per Completed Standard Inst 05/20/2019 09937 Omt 7-8 Body Regions Completed 04/12/2019 87475 IUD Removal Completed 04/09/2019 34482 Omt 7-8 Body Regions Completed 03/05/2019 68172 Omt 7-8 Body Regions Completed 01/27/2019 33724 Omt 7-8 Body Regions Completed Medical Devices Description No Information Available Encounters Type Date Location Provider Dx Diagnosis Office Visit 06/22/2019 Main Office Howie Gee, F33.1 Major depressive 11:00a D.O. disorder, recurrent, moderate F43.12 Post-traumatic stress disorder, chronic F50.9 Eating disorder, unspecified M54.5 Low back pain Z63.79 Other stressful life events affecting family and household Z13.31 Encounter for screening for depression Office Visit 05/20/2019 12:55p Main Office Howie Gee, F33.1 Major depressive D.O. disorder, recurrent, moderate F43.12 Post-traumatic stress disorder, chronic F50.9 Eating disorder, unspecified M54.5 Low back pain M99.05 Segmental and somatic dysfunction of pelvic region M99.02 Segmental and somatic dysfunction of thoracic region M99.03 Segmental and somatic dysfunction of lumbar region M99.04 Segmental and somatic dysfunction of sacral region M99.08 Segmental and somatic dysfunction of rib cage M99.00 Segmental and somatic dysfunction of head region M99.01 Segmental and somatic dysfunction of cervical region Office Visit 04/12/2019 1:40p Main Office Kiara Rico, R10.9 Unspecified P.A. abdominal pain Z30.432 Encounter for removal of intrauterine contraceptive device R19.7 Diarrhea, unspecified Z12.4 Encounter for screening for malignant neoplasm of cervix T83.84xA Pain due to genitourinary prosth dev/grft, initial encounter Office Visit 04/09/2019 12:55p Main Office Howie Gee, F33.1 Major depressive D.O. disorder, recurrent, moderate F43.12 Post-traumatic stress disorder, chronic M25.562 Pain in left knee M99.08 Segmental and somatic dysfunction of rib cage M99.00 Segmental and somatic dysfunction of head region M99.01 Segmental and somatic dysfunction of cervical region M99.02 Segmental and somatic dysfunction of thoracic region M99.03 Segmental and somatic dysfunction of lumbar region M99.05 Segmental and somatic dysfunction of pelvic region M99.04 Segmental and somatic dysfunction of sacral region Office Visit 03/18/2019 4:45p Main Office Howie Gee, F50.9 Eating disorder, D.O. unspecified J45.20 Mild intermittent asthma, uncomplicated R10.9 Unspecified abdominal pain F33.1 Major depressive disorder, recurrent, moderate F43.12 Post-traumatic stress disorder, chronic F41.9 Anxiety disorder, unspecified Office Visit 03/05/2019 11:30a Main Office Howie Gee, D.O. M54.5 Low back pain J45.20 Mild intermittent asthma, uncomplicated F50.9 Eating disorder, unspecified J06.9 Acute upper respiratory infection, unspecified M99.00 Segmental and somatic dysfunction of head region M99.01 Segmental and somatic dysfunction of cervical region M99.03 Segmental and somatic dysfunction of lumbar region M99.08 Segmental and somatic dysfunction of rib cage M99.05 Segmental and somatic dysfunction of pelvic region M99.04 Segmental and somatic dysfunction of sacral region M99.02 Segmental and somatic dysfunction of thoracic region Office Visit 01/27/2019 12:55p Main Office Marlen, S06.0x0D Concussion without Howie, D.O. loss of consciousness, subs encntr M99.05 Segmental and somatic dysfunction of pelvic region M99.03 Segmental and somatic dysfunction of lumbar region M99.04 Segmental and somatic dysfunction of sacral region M99.02 Segmental and somatic dysfunction of thoracic region M99.08 Segmental and somatic dysfunction of rib cage M99.00 Segmental and somatic dysfunction of head region M99.01 Segmental and somatic dysfunction of cervical region M54.2 Cervicalgia M54.5 Low back pain Assessments Date Code Description Provider 07/28/2019 M99.05 Segmental and somatic dysfunction of pelvic Howie Gee D.O. region 07/28/2019 M99.02 Segmental and somatic dysfunction of Howie Gee D.O. thoracic region 07/28/2019 M99.03 Segmental and somatic dysfunction of lumbar Howie Gee D.O. region 07/28/2019 M99.04 Segmental and somatic dysfunction of sacral Howie Gee D.O. region 07/28/2019 M99.08 Segmental and somatic dysfunction of rib [place] Howie, D.O. cage 07/28/2019 M99.00 Segmental and somatic dysfunction of head [place], Howie, D.O. region 07/28/2019 M99.01 Segmental and somatic dysfunction of [place], Howie, D.O. cervical region 07/28/2019 M54.5 Low back pain [place] Howie, D.O. 07/28/2019 M54.6 Pain in thoracic spine S[place]ak, Howie, D.O. 07/28/2019 F33.1 Major depressive disorder, recurrent, [place] Howie, D.O. moderate 07/28/2019 F43.12 Post-traumatic stress disorder, chronic [place]ak, Howie, D.O. 06/22/2019 F33.1 Major depressive disorder, recurrent, [place] Howie, D.O. moderate 06/22/2019 F43.12 Post-traumatic stress disorder, chronic [place], Howie, D.O. 06/22/2019 F50.9 Eating disorder, unspecified [place], Howie, D.O. 06/22/2019 M54.5 Low back pain Sopyank Howie, D.O. 06/22/2019 Z63.79 Other stressful life events affecting family SopchakAvivaon, D.O. and household 06/22/2019 Z13.31 Encounter for screening for depression Sopyank Howie, D.O. 05/20/2019 F33.1 Major depressive disorder, recurrent, Sopchak, Howie, D.O. moderate 05/20/2019 F43.12 Post-traumatic stress disorder, chronic [place]chak, Howie, D.O. 05/20/2019 F50.9 Eating disorder, unspecified [place]chak, Howie, D.O. 05/20/2019 M54.5 Low back pain S[place]chak, Howie, D.O. 05/20/2019 M99.05 Segmental and somatic dysfunction of pelvic [place]ch[place], Howie , D.O. region 05/20/2019 M99.02 Segmental and somatic dysfunction of [place], Howie, D.O. thoracic region 05/20/2019 M99.03 Segmental and somatic dysfunction of lumbar Howie Gee D.O. region 05/20/2019 M99.04 Segmental and somatic dysfunction of sacral Howie Gee D.O. region 05/20/2019 M99.08 Segmental and somatic dysfunction of rib Howie Gee D.O. cage 05/20/2019 M99.00 Segmental and somatic dysfunction of head Howie Gee D.O. region 05/20/2019 M99.01 Segmental and somatic dysfunction of Howie Gee D.O. cervical region 04/12/2019 R10.9 Unspecified abdominal pain Kiara [place], P.A. 04/12/2019 Z30.432 Encounter for removal of intrauterine Kiara [place], P.A. contraceptive device 04/12/2019 R19.7 Diarrhea, unspecified Kiara [place], P.A. 04/12/2019 Z12.4 Encounter for screening for malignant Kiara [place], P.A. neoplasm of cervix 04/12/2019 T83.84xA Pain due to genitourinary prosthetic Kiara [place], P.A. devices, implants and grafts, initial encounter 04/09/2019 F33.1 Major depressive disorder, recurrent, Howie Gee D.O. moderate 04/09/2019 F43.12 Post-traumatic stress disorder, chronic Howie Gee D.O. 04/09/2019 M25.562 Pain in left knee Howie Gee D.O. 04/09/2019 M99.08 Segmental and somatic dysfunction of rib Howie Gee D.O. cage 04/09/2019 M99.00 Segmental and somatic dysfunction of head Howie Gee D.O. region 04/09/2019 M99.01 Segmental and somatic dysfunction of Howie Gee D.O. cervical region 04/09/2019 M99.02 Segmental and somatic dysfunction of Howie Gee D.O. thoracic region 04/09/2019 M99.03 Segmental and somatic dysfunction of lumbar Howie Gee D.O. region 04/09/2019 M99.05 Segmental and somatic dysfunction of pelvic Howie Gee D.O. region 04/09/2019 M99.04 Segmental and somatic dysfunction of sacral [place], Howie , D.O. region 03/18/2019 F50.9 Eating disorder, unspecified [place], Howie, D.O. 03/18/2019 J45.20 Mild intermittent asthma, uncomplicated [place], Howie, D.O. 03/18/2019 R10.9 Unspecified abdominal pain SopyankAvivaon, D.O. 03/18/2019 F33.1 Major depressive disorder, recurrent, Sopchak Howie, D.O. moderate 03/18/2019 F43.12 Post-traumatic stress disorder, chronic SopchakAvivaon, D.O. 03/18/2019 F41.9 Anxiety disorder, unspecified [place], Howie, D.O. 03/05/2019 M54.5 Low back pain SopAviva laon, D.O. 03/05/2019 J45.20 Mild intermittent asthma, uncomplicated [place]chak, Howie, D.O. 03/05/2019 F50.9 Eating disorder, unspecified [place]ak, Howie, D.O. 03/05/2019 J06.9 Acute upper respiratory infection, SopAviva laon, D.O. unspecified 03/05/2019 M99.00 Segmental and somatic dysfunction of head SopyankAvivaon, D.O. region 03/05/2019 M99.01 Segmental and somatic dysfunction of SopyankAvivaon, D.O. cervical region 03/05/2019 M99.03 Segmental and somatic dysfunction of lumbar [place], Howie , D.O. region 03/05/2019 M99.08 Segmental and somatic dysfunction of rib [place]chak, Howie, D.O. cage 03/05/2019 M99.05 Segmental and somatic dysfunction of pelvic Sopyank, Howie , D.O. region 03/05/2019 M99.04 Segmental and somatic dysfunction of sacral Sopyank, Howie , D.O. region 03/05/2019 M99.02 Segmental and somatic dysfunction of SopyankAvivaon, D.O. thoracic region 01/27/2019 S06.0x0D Concussion without loss of consciousness, Howie Gee D.O. subsequent encount 01/27/2019 M99.05 Segmental and somatic dysfunction of pelvic Howie Gee D.O. region 01/27/2019 M99.03 Segmental and somatic dysfunction of lumbar Howie Gee D.O. region 01/27/2019 M99.04 Segmental and somatic dysfunction of sacral Howie Gee D.O. region 01/27/2019 M99.02 Segmental and somatic dysfunction of Howie Gee D.O. thoracic region 01/27/2019 M99.08 Segmental and somatic dysfunction of rib Howie Gee D.O. cage 01/27/2019 M99.00 Segmental and somatic dysfunction of head Howie Gee D.O. region 01/27/2019 M99.01 Segmental and somatic dysfunction of Howie Gee D.O. cervical region 01/27/2019 M54.2 Cervicalgia Howie Gee D.O. 01/27/2019 M54.5 Low back pain Howie Gee D.O. Plan of Treatment 05/20/2019 - Howie Gee D.O.F33.1 Major depressive disorder, recurrent, moderateFollow up:1 month IhjhuhgrusF81.12 Post-traumatic stress disorder, mmlosmrE49.9 Eating disorder, affbmygskhwC53.5 Low back painM99.05 Segmental and somatic dysfunction of pelvic qscurpV42.02 Segmental and somatic dysfunction of thoracic fpbntbE73.03 Segmental and somatic dysfunction of lumbar alohhmP61.04 Segmental and somatic dysfunction of sacral zpnminF97.08 Segmental and somatic dysfunction of rib cageM99.00 Segmental and somatic dysfunction of head gfqsxuC43.01 Segmental and somatic dysfunction of cervical region Functional Status Description No Information Available Mental Status Description No Information Available Referrals Description No Information Available
--- OUTSIDE RECORDS SUMMARY | 2019-09-01 22:18 | XMS REPORT ---
:1990 Author Organization [facility] Care Team Providers Name Role Phone Nicholaslizet Janet Primary Care Physician Unavailable Allergies, Adverse Reactions, Alerts Allergy Code CodeSystem Reaction Severity Criticality Status Start Substance Date Moderate Medications Medication Medication Medication Start Stop Route Dose Status Fill Code CodeSystem Date Date Instructions RxNorm Problems Problem Name Code CodeSystem Alternate Alternate Start End Status Narrative Code CodeSystem Date Date Recurrent [id number] SNOMED-CT 2018- Active 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, 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 Recurrent [id number] SNOMED-CT Active 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, 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 Relevant diagnostic tests/laboratory data Narrative No Information Procedures Procedure Code CodeSystem Target Date of Status Service Device Device Device Name Site Procedure Delivery Code Name UID Location SNOMED-CT () 2019-03-[address], [id number] SNOMED-CT () 2018-10-[address], [id number] SNOMED-CT () 2019-01-[address], [id number] SNOMED-CT () 2018-11-[address], [id number] Psychother [id number] SNOMED-CT () 2018-10-23 completed Mental apy, 45 4 Health- minutes Cirilo with [facility] patient [address] [place] [address], [phone] [phone] Psychother [id number] SNOMED-CT () 2019-03-05 completed Mental apy, 45 4 Health- minutes Wayne with [facility] patient [address] [place] [address], [id number] [phone] Psychother [id number] SNOMED-CT () 2019-05-06 completed Mental apy, 45 4 Health- minutes Cirilo with [facility] patient [address] [place] [address], [id number] [phone] Psychother [id number] SNOMED-CT () 2018-09-07 completed Mental apy, 45 4 Health- minutes Cirilo with [facility] patient [address] [place] [address], [phone] [phone] Psychother [id number] SNOMED-CT () 2019-05-13 completed Mental apy, 45 4 Health- minutes Cirilo with [facility] patient [address] [place] [address], [id number] [phone] Psychother [id number] SNOMED-CT () 2019-03-22 completed Mental apy, 45 4 Health- minutes Cirilo with [facility] patient [address] [place] [address], [id number] [phone] Psychother [phone] SNOMED-CT () 2019-04-08 completed Mental apy, 45 4 Health- minutes Wayne with [facility] patient [address] [place] [address], [id number] [phone] Psychother [id number] SNOMED-CT () 2019-06-17 completed Mental apy, 45 4 Health- minutes Cirilo with [facility] patient [address] [place] [address], [phone] [phone] Psychother [id number] SNOMED-CT () 2019-04-15 completed Mental apy, 45 4 Health- minutes Cirilo with [facility] patient [address] [place] [address], [id number] [phone] Psychother [phone] SNOMED-CT () 2018-10-27 completed Mental apy, 45 4 Health- minutes Wayne with [facility] patient [address] [place] [address], [phone] Psychother [id number] SNOMED-CT () 2019-02-11 completed Mental apy, 45 4 Health- minutes Cirilo with [facility] patient [address] [place] [address], [id number] [phone] Psychother [id number] SNOMED-CT () 2019-02-08 completed Mental apy, 45 4 Health- minutes Wayne with [facility] patient [address] [place] [address], [phone] [phone] Psychother [id number] SNOMED-CT () 2018-11-11 completed Mental apy, 45 4 Health- minutes Cirilo with [facility] patient [address] [place] [address], [id number] [phone] Psychother [phone] SNOMED-CT () 2018-10-05 completed Mental apy, 45 4 Health- minutes Wayne with [facility] patient [address] [place] [address], [id number] [phone] Psychother [id number] SNOMED-CT () 2019-05-25 completed Mental apy, 45 4 Health- minutes Wayne with [facility] patient [address] [place] [address], [id number] [phone] Psychother [id number] SNOMED-CT () 2019-02-22 completed Mental apy, 45 4 Health- minutes Cirilo with [facility] patient [address] [place] [address], [id number] [phone] Psychother [id number] SNOMED-CT () 2019-01-15 completed Mental apy, 45 4 Health- minutes Cirilo with [facility] patient [address] [place] [address], [phone] [phone] Psychother [id number] SNOMED-CT () 2018-12-29 completed Mental apy, 45 4 Health- minutes Wayne with [facility] patient [address] [place] [address], [phone] [phone] Psychother [id number] SNOMED-CT () 2019-03-08 completed Mental apy, 45 4 Health- minutes Wayne with [facility] patient [address] [place] [address], [phone] [phone] Psychother [id number] SNOMED-CT () 2019-06-24 completed Mental apy, 45 4 Health- minutes Cirilo with [facility] patient [address] [place] [address], [id number] [phone] Psychother [id number] SNOMED-CT () 2019-01-05 completed Mental apy, 45 4 Health- minutes Cirilo with [facility] patient [address] [place] [address], [phone] Psychother [id number] SNOMED-CT () 2018-09-14 completed Mental apy, 45 4 Health- minutes Cirilo with [facility] patient [address] [place] [address], [id number] [phone] Psychother [id number] SNOMED-CT () 2018-11-06 completed Mental apy, 45 4 Health- minutes Cirilo with [facility] patient [address] [place] [address], [id number] [phone] Psychother [phone] SNOMED-CT () 2019-01-18 completed Mental apy, 45 4 Health- minutes Cirilo with [facility] patient [address] [place] [address], [phone] Psychother [phone] SNOMED-CT () 2018-12-01 completed Mental apy, 45 4 Health- minutes Wayne with [facility] patient [address] [place] [address], [id number] [phone] Psychother [id number] SNOMED-CT () 2019-06-01 completed Mental apy, 45 4 Health- minutes Cirilo with [facility] patient [address] [place] [address], [id number] [phone] Psychother [id number] SNOMED-CT () 2018-09-28 completed Mental apy, 45 4 Health- minutes Cirilo with [facility] patient [address] [place] [address], [id number] [phone] Psychother 7065543 SNOMED-CT () 2018-12-24 completed Mental apy, 45 4 Health- minutes Wayne with [facility] patient [address] [place] [address], [id number] [phone] Psychother [id number] SNOMED-CT () 2018-10-30 completed Mental apy, 45 4 Health- minutes Wayne with [facility] patient [address] [place] [address], [phone] [phone] Psychother [id number] SNOMED-CT () 2019-04-26 completed Mental apy, 45 4 Health- minutes Cirilo with [facility] patient [address] [place] [address], [id number] [phone] Psychother [phone] SNOMED-CT () 2019-02-15 completed Mental apy, 45 4 Health- minutes Wayne with [facility] patient [address] [place] [address], [id number] [phone] Psychother [id number] SNOMED-CT () 2019-06-22 completed Mental apy, 45 4 Health- minutes Wayne with [facility] patient [address] [place] [address], [id number] [phone] Psychother [phone] SNOMED-CT () 2018-09-24 completed Mental apy, 45 4 Health- minutes Cirilo with [facility] patient [address] [place] [address], [id number] [phone] Psychother [id number] SNOMED-CT () 2019-03-29 completed Mental apy, 45 4 Health- minutes Cirilo with [facility] patient [address] [place] [address], [id number] [phone] Psychother [phone] SNOMED-CT () 2019-06-29 completed Mental apy, 45 4 Health- minutes Cirilo with [facility] patient [address] [place] [address], [id number] [phone] Psychother 6637396 SNOMED-CT () 2018-12-15 completed Mental apy, 45 4 Health- minutes Cirilo with [facility] patient [address] [place] [address], [id number] [phone] Psychother 1247279 SNOMED-CT () 2019-02-04 completed Mental apy, 45 4 Health- minutes Cirilo with [facility] patient [address] [place] [address], [id number] [phone] Psychother [phone] SNOMED-CT () 2019-06-08 completed Mental apy, 45 4 Health- minutes Cirilo with [facility] patient [address] [place] [address], [phone] [phone] Psychother [phone] SNOMED-CT () 2018-12-08 completed Mental apy, 45 4 Health- minutes Cirilo with [facility] patient [address] [place] [address], [id number] [phone] Psychother [id number] SNOMED-CT () 2019-03-18 completed Mental apy, 45 4 Health- minutes Wayne with [facility] patient [address] [place] [address], [phone] Psychother [id number] SNOMED-CT () 2019-06-16 completed Mental apy, 45 4 Health- minutes Wayne with [facility] patient [address] [place] [address], [phone] Psychother [id number] SNOMED-CT () 2019-05-19 completed Mental apy, 45 4 Health- minutes Cirilo with [facility] patient [address], [place], [phone] Psychother 1948240 SNOMED-CT () 2018-11-17 completed Mental apy, 45 4 Health- minutes Wayne with [facility] patient [address], [place], [phone] Encounters/Encounter Diagnoses Encounter Encounter Diagnosis Diagnosis Diagnosis Date of Service Name Code Code Name CodeSystem Diagnosis Delivery Location [id number] Recurrent SNOMED-CT Behavioral depressive Health disorder, Clinic , , current , episode severe 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 Vital Signs No Information Social History Element Description Description Start End Code CodeSystem AdditionalInfo Date Date SexAssignedAtBirth Female F AdministrativeGender 02-12 Hospital Discharge Instructions Reason For Referral Medical Equipment FDA Assessments
--- OUTSIDE RECORDS SUMMARY | 2019-09-01 22:18 | XMS REPORT | Continuity of Care Document ---
:1990 External Reference #:[id number] Author Name Howie Gee D.O. (transmitted by agent of provider Pinky Simmons) Address [address] [place] [address] Care Team Providers Name Role Phone HCP given Care Team Information Brass Buffer Unavailable Problems Active Problems Provider Date Eating [...] Medications SIG Qnty Indications Ordering Date Provider Pataday instill one drop 7.5ml H10.45 Howie Gee, 08/31/2019 0.2% Solution into affected D.O. eye(s) once daily. Montelukast Sodium Take One Tablet 30tabs Cliff [...] Respimat 1 puffs every 4 1inh Cliff Ballseteros, 06/10/2017 hours as needed M.D. 20-100mcg/Act for [...] Result H/L Range Note Urinalysis Profile 05/10/2019 [facility] Urine Color Yellow [phone] Urine Appearance Clear Urine Specific [place] 1.014 Normal 1.010-1.030 Urine pH 5.0 Normal [...] Present Abnormal Absent CBC Auto Diff 05/10/2019 [facility] White Blood 8.8 10^3/uL Normal 3.5-10.8 [phone] Count Red Blood Count 5.80 10^6/uL High [...] Blood Cells % 0.0 Laboratory test 05/10/2019 [facility] Lactic Acid 1.0 mmol/L Normal 0.5-2.0 2 finding [phone] Comp Metabolic 05/10/2019 [facility] Sodium 138 mmol/L Normal 135- 145 Panel [phone] Potassium 3.6 mmol/L Normal 3.5-5.0 Chloride 104 [...] 91.4 >60 3 Laboratory test finding 05/10/2019 [facility] Lipase 34 U/L Normal 11.0-82.0 [phone] C Reactive Protein < 1.00 mg/L Normal <8.01 HCG < 0.60 mIU/mL 4 Urine Culture And 05/10/2019 [facility] Urine Culture SEE RESULT BELOW 5 Sensitivities [phone] Ua Inhouse 04/12/2019 In House Ua Glucose - 6 Ua Bilirubin - Ua Ketones - Ua Specific [place] 1.005 Ua Blood - Ua PH 6.0 Ua Protein - Ua Urobilinogen - Ua Nitrite - Ua Leukocytes - Laboratory test finding 04/12/2019 [facility] Cytology SEE RESULT BELOW 7 [phone] 1 Consistent with Previous Results Reported on 12/07/18 2 [facility] Severe Sepsis and Septic Shock Management Bundle [...] [address]: Mau Gonzalez MD Acct: [id number] Unit: [id number] AGE: 29 Location: ED Re05/10/19 SEX: F Status: DEP ER SPEC: [id number] ALENA: 05/10/[address]: Jacqueline LLANES REQ: [id number] RECD: 05/10/19 STATUS: GRIFFIN SABA DR: Howie Gee DO _ SOURCE: URINE SPDESC: ORDERED: Urine Culture Procedure Result Reported Site Urine Culture Final 05/12/19- 933 ML No Growth (<1,000 CFU/mL) * - Main Lab . END OF REPORT DEPARTMENT OF PATHOLOGY, [address] [place] [address] Gabino García M.D. Director [facility] # [id number] 6 voided 7 SEE RESULT BELOW Name: YOLANDA DARNELL : [address]: Kiara LLANES Acct: [id number] Unit: [id number] AGE: 29 Location: [facility] Re04/12/19 SEX: F Status: REG REF SPEC: [id number] ALENA: 04/12/[address]: Kiara LLANES REQ: [id number] RECD: 04/12/19 STATUS: SOUT _ ORDERED: TP IMAGE ANALYS, CHIEF TECHNICAL OFFICER PHYS INTERP, HPV/Thin Prep COMMENTS: NO TRACKING [...] CONTINUED ON NEXT PAGE DEPARTMENT OF PATHOLOGY, [employer] [place], [place] [address] Gabino García M.D. Director [facility] # [id number] CYTOLOGY PATIENT INFORMATION Patient Information: HPV: Thin Layer Pap Test w/reflex to high risk HPV RNA testing when ASCUS Actual Specimen Date: 04/12/19 ?: N Post Menopausal?: N Hysterectomy?: N Signed by and Reported on: Jacqueilne Newby MD 04/15/19 4974 This Pap test was evaluated with the assistance of the [employer] Test Imaging System. Due to cytologic findings at the layout artist microscope, comprehensive manual rescreening by a [employer] may be required. The Pap Smear is [...] years. END OF REPORT DEPARTMENT OF PATHOLOGY, [employer] [place], [place] [address] Gabino García M.D. Director [facility] # [id number] Procedures Date Code Description Status 07/28/2019 25762 Omt 7-8 Body Regions Completed 06/22/2019 91024 Brief Emotional/Behav Assessment W/ Scoring Doc Per Completed Standard Inst 05/20/2019 80692 Omt 7-8 Body Regions Completed 04/12/2019 08181 IUD Removal Completed 04/09/2019 69970 Omt 7-8 Body Regions Completed 03/05/2019 31991 Omt 7-8 Body Regions Completed Medical Devices Description No Information Available Encounters Type Date Location Provider Dx Diagnosis Office Visit 08/31/2019 Main Office Howie Gee, H10.45 Other chronic allergic 3:00p D.O. conjunctivitis F33.1 Major depressive disorder, recurrent, moderate F43.12 Post-traumatic stress disorder, chronic F50.9 Eating disorder, unspecified Z63.79 Other stressful life events affecting family and household Office Visit 07/28/2019 12:55p Main Office Howie Gee, M99.05 Segmental and D.O. somatic dysfunction of pelvic region M99.02 Segmental and somatic dysfunction of thoracic region M99.03 Segmental and somatic dysfunction of lumbar region M99.04 Segmental and somatic dysfunction of sacral region M99.08 Segmental and somatic dysfunction of rib cage M99.00 Segmental and somatic dysfunction of head region M99.01 Segmental and somatic dysfunction of cervical region M54.5 Low back pain M54.6 Pain in thoracic spine F33.1 Major depressive disorder, recurrent, moderate F43.12 Post-traumatic stress disorder, chronic Office Visit 06/22/2019 11:00a Main Office Howie Gee, F33.1 Major depressive [...] region Office Visit 04/12/2019 1:40p Main Office Kiarairasema Rico, R10.9 Unspecified P.A. abdominal pain Z30.432 [...] Segmental and somatic dysfunction of thoracic region Assessments Date Code Description Provider 08/31/2019 H10.45 Other chronic allergic conjunctivitis Sopyank Howie, D.O. 08/31/2019 F33.1 Major depressive disorder, recurrent, Sopchak, Howie, D.O. moderate 08/31/2019 F43.12 Post-traumatic stress disorder, chronic Sopchak, Howie, D.O. 08/31/2019 F50.9 Eating disorder, unspecified Sopchak, Howie, D.O. 08/31/2019 Z63.79 Other stressful life events affecting family Sopchak Howie, D.O. and household 07/28/2019 M99.05 Segmental and somatic dysfunction of pelvic Sopchak, Howie , D.O. region 07/28/2019 M99.02 Segmental and somatic dysfunction of Sopchak, Howie, D.O. thoracic region 07/28/2019 M99.03 Segmental and somatic dysfunction of lumbar Sopchak, Howie , D.O. region 07/28/2019 M99.04 Segmental and somatic dysfunction of sacral Sopchak, Howie , D.O. region 07/28/2019 M99.08 Segmental and somatic dysfunction of rib Sopchak, Howie, D.O. cage 07/28/2019 M99.00 Segmental and somatic dysfunction of head Sopchak, Howie, D.O. region 07/28/2019 M99.01 Segmental and somatic dysfunction of Sopchak, Howie, D.O. cervical region 07/28/2019 M54.5 Low back pain Sopchak, Howie, D.O. 07/28/2019 M54.6 Pain in thoracic spine Sopchak, Howie, D.O. 07/28/2019 F33.1 Major depressive disorder, recurrent, Sopchak, Howie, D.O. moderate 07/28/2019 F43.12 Post-traumatic stress disorder, chronic Sopchak, Howie, D.O. 06/22/2019 F33.1 Major depressive disorder, recurrent, Sopchak, Howie, D.O. moderate 06/22/2019 F43.12 Post-traumatic stress disorder, chronic Sopchak, Howie, D.O. 06/22/2019 F50.9 Eating disorder, unspecified Howie Gee, D.O. 06/22/2019 M54.5 Low back pain Howie Gee D.O. 06/22/2019 Z63.79 Other stressful life events affecting family Howie Gee D.O. and household 06/22/2019 Z13.31 Encounter for screening for depression Howie Gee D.O. 05/20/2019 F33.1 Major depressive disorder, recurrent, Howie Gee D.O. moderate 05/20/2019 F43.12 Post-traumatic stress disorder, chronic Howie Gee D.O. 05/20/2019 F50.9 Eating disorder, unspecified Howie Gee, D.O. 05/20/2019 M54.5 Low back pain Howie Gee D.O. 05/20/2019 M99.05 Segmental and somatic dysfunction of pelvic SopHowie la , D.O. region 05/20/2019 M99.02 Segmental and somatic dysfunction of SopHowie la, D.O. thoracic region 05/20/2019 M99.03 Segmental and somatic dysfunction of lumbar SopHowie la , D.O. region 05/20/2019 M99.04 Segmental and somatic dysfunction of sacral SopHowie la , D.O. region 05/20/2019 M99.08 Segmental and somatic dysfunction of rib Howie Gee D.O. cage 05/20/2019 M99.00 Segmental and somatic dysfunction of head SopHowie la, D.O. region 05/20/2019 M99.01 Segmental and somatic dysfunction of SopHowie la, D.O. cervical region 04/12/2019 R10.9 Unspecified abdominal pain Kiara Pittsburgh, P.A. 04/12/2019 Z30.432 Encounter for removal of intrauterine Kiara Pittsburgh, P.A. contraceptive device 04/12/2019 R19.7 Diarrhea, unspecified Kiara [place], P.A. 04/12/2019 Z12.4 Encounter for screening for malignant Kiara [place], P.A. neoplasm of cervix 04/12/2019 T83.84xA Pain due to genitourinary prosthetic Sukh Davison devices, implants and grafts, initial encounter 04/09/2019 F33.1 Major depressive disorder, recurrent, SopAviva laon, D.O. moderate 04/09/2019 F43.12 Post-traumatic stress disorder, chronic SopyankAvivaon, D.O. 04/09/2019 M25.562 Pain in left knee SopAviva laon, D.O. 04/09/2019 M99.08 Segmental and somatic dysfunction of rib Sopchak, Howie, D.O. cage 04/09/2019 M99.00 Segmental and somatic dysfunction of head Sopchak, Howie, D.O. region 04/09/2019 M99.01 Segmental and somatic dysfunction of SopchakAvivaon, D.O. cervical region 04/09/2019 M99.02 Segmental and somatic dysfunction of SopchakAvivaon, D.O. thoracic region 04/09/2019 M99.03 Segmental and somatic dysfunction of lumbar Sopchak, Howie , D.O. region 04/09/2019 M99.05 Segmental and somatic dysfunction of pelvic Sopchak, Howie , D.O. region 04/09/2019 M99.04 Segmental and somatic dysfunction of sacral Sopchak, Howie , D.O. region 03/18/2019 F50.9 Eating disorder, unspecified Sopchak, Howie, D.O. 03/18/2019 J45.20 Mild intermittent asthma, uncomplicated SopyankAvivaon, D.O. 03/18/2019 R10.9 Unspecified abdominal pain SopyankHowie, D.O. 03/18/2019 F33.1 Major depressive disorder, recurrent, SopyankAvivaon, D.O. moderate 03/18/2019 F43.12 Post-traumatic stress disorder, chronic SopyankAvivaon, D.O. 03/18/2019 F41.9 Anxiety disorder, unspecified Sopchak Howie, D.O. 03/05/2019 M54.5 Low back pain SopyankHowie, D.O. 03/05/2019 J45.20 Mild intermittent asthma, uncomplicated Sopchak, Howie, D.O. 03/05/2019 F50.9 Eating disorder, unspecified Howie Gee D.O. 03/05/2019 J06.9 Acute upper respiratory infection, Howie Gee D.O. unspecified 03/05/2019 M99.00 Segmental and somatic dysfunction of head Howie Gee D.O. region 03/05/2019 M99.01 Segmental and somatic dysfunction of Howie Gee D.O. cervical region 03/05/2019 M99.03 Segmental and somatic dysfunction of lumbar Howie Gee D.O. region 03/05/2019 M99.08 Segmental and somatic dysfunction of rib Howie Gee D.O. cage 03/05/2019 M99.05 Segmental and somatic dysfunction of pelvic Howie Gee D.O. region 03/05/2019 M99.04 Segmental and somatic dysfunction of sacral Howie Gee D.O. region 03/05/2019 M99.02 Segmental and somatic dysfunction of Howie Gee D.O. thoracic region Plan of Treatment Future Appointment(s):10/15/2019 8:30 am - Howie Gee D.O. at Main [id number]/31/2019 - Howie Gee D.O.H10.45 Other chronic allergic conjunctivitisNew Medication:Pataday 0.2 % - instill one drop into affected eye( s) once daily.Comments:TO 23:15F33.1 Major depressive disorder, recurrent, qyhmpuwrS67.12 Post-traumatic stress disorder, vvswhduB69.9 Eating disorder, zqstootuivsY41.79 Other stressful life events affecting family and household Functional Status Description No Information Available Mental Status Description No Information Available Referrals Description No Information Available
--- OUTSIDE RECORDS SUMMARY | 2019-09-01 22:19 | XMS REPORT ---
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 Recurrent [id number] SNOMED-CT Active 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, 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 Relevant diagnostic tests/laboratory data Narrative No Information Procedures Procedure Code CodeSystem Target Date of Status Service Device Device Device Name Site Procedure Delivery Code Name UID Location SNOMED-CT () 2018-10-[address], [id number] SNOMED-CT () 2019-03-[address], [id number] SNOMED-CT () 2019-01-[address], [id number] SNOMED-CT () 2018-11-[address], [id number] Psychother [id number] SNOMED-CT () 2018-12-01 completed Mental apy, 45 4 Health- minutes Cirilo with [facility] patient [address] [place] [address], [id number] [phone] Psychother [id number] SNOMED-CT () 2018-12-15 completed Mental apy, 45 4 Health- minutes [place] with [facility] patient [address] [place] [address], [id number] [phone] Psychother [id number] SNOMED-CT () 2018-12-24 completed Mental apy, 45 4 Health- minutes Cirilo with [facility] patient [address] [place] [address], [id number] [phone] Psychother [id number] SNOMED-CT () 2018-12-08 completed Mental apy, 45 4 Health- minutes Cirilo with [facility] patient [address] [place] [address], [id number] [phone] Psychother [id number] SNOMED-CT () 2018-12-29 completed Mental apy, 45 4 Health- minutes Cirilo with [facility] patient [address] [place] [address], [id number] [phone] Psychother [id number] SNOMED-CT () 2019-01-05 completed Mental apy, 45 4 Health- minutes Cirilo with [facility] patient [address] [place] [address], [id number] [phone] Psychother [id number] SNOMED-CT () 2019-01-15 completed Mental apy, 45 4 Health- minutes [facility] with [facility] patient [address] [place] [address], [id number] [phone] Psychother [id number] SNOMED-CT () 2019-01-18 completed Mental apy, 45 4 Health- minutes Cirilo with [facility] patient [address] [place] [address], [id number] [phone] Psychother [id number] SNOMED-CT () 2018-10-23 completed Mental apy, 45 4 Health- minutes Cirilo with [facility] patient [address] [place] [address], [id number] [phone] Psychother [id number] SNOMED-CT () 2018-10-27 completed Mental apy, 45 4 Health- minutes [place] with [facility] patient [address] [place] [address], [id number] [phone] Psychother [id number] SNOMED-CT () 2018-10-30 completed Mental apy, 45 4 Health- minutes Cirilo with [facility] patient [address] [place] [address], [id number] [phone] Psychother [id number] SNOMED-CT () 2018-11-06 completed Mental apy, 45 4 Health- minutes [place] with [facility] patient [address] [place] [address], [id number] [phone] Psychother [id number] SNOMED-CT () 2018-11-11 completed Mental apy, 45 4 Health- minutes Cirilo with [facility] patient [address] [place] [address], [id number] [phone] Psychother [id number] SNOMED-CT () 2018-10-05 completed Mental apy, 45 4 Health- minutes [place] with [facility] patient [address] [place] [address], [id number] [phone] Psychother [id number] SNOMED-CT () 2018-11-17 completed Mental apy, 45 4 Health- minutes [place] with [facility] patient [address] [place] [address], [id number] [phone] Psychother [id number] SNOMED-CT () 2019-02-04 completed Mental apy, 45 4 Health- minutes Cirilo with [facility] patient [address] [place] [address], [id number] [phone] Psychother [id number] SNOMED-CT () 2019-02-11 completed Mental apy, 45 4 Health- minutes Cirilo with [facility] patient [address] [place] [address], [id number] [phone] Psychother [id number] SNOMED-CT () 2019-02-08 completed Mental apy, 45 4 Health- minutes [place] with [facility] patient [address] [place] [address], [id number] [phone] Psychother [id number] SNOMED-CT () 2019-02-15 completed Mental apy, 45 4 Health- minutes [place] with [facility] patient [address] [place] [address], [id number] [phone] Psychother [id number] SNOMED-CT () 2019-02-22 completed Mental apy, 45 4 Health- minutes Cirilo with [facility] patient [address] [place] [address], [id number] [phone] Psychother [id number] SNOMED-CT () 2019-03-05 completed Mental apy, 45 4 Health- minutes Cirilo with [facility] patient [address] [place] [address], [id number] [phone] Psychother [id number] SNOMED-CT () 2019-03-08 completed Mental apy, 45 4 Health- minutes Cirilo with [facility] patient [address] [place] [address], [id number] [phone] Psychother [id number] SNOMED-CT () 2019-03-22 completed Mental apy, 45 4 Health- minutes Cirilo with [facility] patient [address] [place] [address], [id number] [phone] Psychother [id number] SNOMED-CT () 2019-03-18 completed Mental apy, 45 4 Health- minutes Cirilo with [facility] patient [address] [place] [address], [id number] [phone] Psychother [id number] SNOMED-CT () 2019-03-29 completed Mental apy, 45 4 Health- minutes [place] with [facility] patient [address] [place] [address], [id number] [phone] Psychother [id number] SNOMED-CT () 2019-04-08 completed Mental apy, 45 4 Health- minutes Cirilo with [facility] patient [address] [place] [address], [id number] [phone] Psychother [id number] SNOMED-CT () 2019-04-15 completed Mental apy, 45 4 Health- minutes Cirilo with [facility] patient [address] [place] [address], [id number] [phone] Psychother [id number] SNOMED-CT () 2019-04-26 completed Mental apy, 45 4 Health- minutes [place] with [facility] patient [address] [place] [address], [id number] [phone] Psychother [id number] SNOMED-CT () 2019-05-06 completed Mental apy, 45 4 Health- minutes [place] with [facility] patient [address] [place] [address], [id number] [phone] Psychother [id number] SNOMED-CT () 2019-05-13 completed Mental apy, 45 4 Health- minutes Cirilo with [facility] patient [address] [place] [address], [id number] [phone] Psychother [id number] SNOMED-CT () 2019-05-19 completed Mental apy, 45 4 Health- minutes [facility] with [facility] patient [address] [place] [address], [id number] [phone] Psychother [id number] SNOMED-CT () 2019-06-01 completed Mental apy, 45 4 Health- minutes [place] with [facility] patient [address] [place] [address], [id number] [phone] Psychother [id number] SNOMED-CT () 2019-05-25 completed Mental apy, 45 4 Health- minutes Cirilo with [facility] patient [address] [place] [address], [id number] [phone] Psychother [id number] SNOMED-CT () 2019-06-08 completed Mental apy, 45 4 Health- minutes Cirilo with [facility] patient [address] [place] [address], [id number] [phone] Psychother [id number] SNOMED-CT () 2019-06-17 completed Mental apy, 45 4 Health- minutes Cirilo with [facility] patient [address] [place] [address], [id number] [phone] Psychother [id number] SNOMED-CT () 2019-06-16 completed Mental apy, 45 4 Health- minutes Cirilo with [facility] patient [address] [place] [address], [id number] [phone] Psychother [id number] SNOMED-CT () 2019-06-22 completed Mental apy, 45 4 Health- minutes Cirilo with [facility] patient [address] [place] [address], [id number] [phone] Psychother [id number] SNOMED-CT () 2019-06-24 completed Mental apy, 45 4 Health- minutes Cirilo with [facility] patient [address] [place] [address], [id number] [phone] Psychother [id number] SNOMED-CT () 2018-09-07 completed Mental apy, 45 4 Health- minutes Cirilo with [facility] patient [address] [place] [address], [id number] [phone] Psychother [id number] SNOMED-CT () 2018-09-14 completed Mental apy, 45 4 Health- minutes [facility] with [facility] patient [address] [place] [address], [phone] [phone] Psychother [id number] SNOMED-CT () 2018-09-24 completed Mental apy, 45 4 Health- minutes [facility] with [facility] patient [address] [place] [address], [id number] [phone] Psychother [id number] SNOMED-CT () 2018-09-28 completed Mental apy, 45 4 Health- minutes Cirilo with [facility] patient [address] [place], [place], [id number] [phone] Encounters/Encounter Diagnoses Encounter Encounter Diagnosis Diagnosis Diagnosis Date of Service Name Code Code Name CodeSystem Diagnosis Delivery Location [id number] Recurrent SNOMED-CT Behavioral depressive Health disorder, Clinic , , current , episode severe 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 Vital Signs No Information Social History Element Description Description Start End Code CodeSystem AdditionalInfo Date Date SexAssignedAtBirth Female F AdministrativeGender 02-12 Hospital Discharge Instructions Reason For Referral Medical Equipment FDA Assessments
== END 2019-09-01 22:25 | disposition home or self-care (01) ==
LOC: ED 20:37
DX: F32.9 Major depressive disorder, single episode, unspecified (principal); Z97.5 Presence of (intrauterine) contraceptive device; Z79.899 Other long term (current) drug therapy; Z88.0 Allergy status to penicillin; Z88.8 Allergy status to other drugs, medicaments and biological substances
CPT/HCPCS: 99284